=== PATIENT | female | born 1995 | race African-American/Black ===

== ENCOUNTER 2017-02-19 12:18 | Emergency (ER) | payer BC, OTHER ==
[2017-02-19] MEDS ORDERED: LORazepam 1 MG TAB PO STA (12:51)
--- NOTE | 2017-02-19 12:55 | ED ---
General Adult HPI - General Chief complaint: Anxiety Stated complaint: anxiety Source: patient, RN notes reviewed Mode of arrival: EMS Limitations: no limitations - History of Present Illness Initial comments: Chief complaint history of present illness a 21-year-old female reports that she became nauseated while in [employer]ri[employer] and then vomited and then had an anxiety attack and/or panic attack. Patient reports she's had this several times over the last several years last time was over 14 months ago while with her daughter. Patient denies any specific reason. Denies any serious emotional or medical problems. - Related Data Home Medications Medication Instructions Recorded Confirmed No Known Home Medications [No 02/19/17 02/19/17 Known Home Medications] Allergies Allergy/AdvReac Type Severity Reaction Status Date / Time No Known Allergies Allergy Verified 02/19/17 12:28 Review of Systems ROS Statement: Those systems with pertinent positive or pertinent negative responses have been documented in the HPI. Review of systems. Patient denying any headache or visual acuity changes she reports she is breathing quickly she has numbness and tingling around her lips and her hands feel tight. Patient feel short of breath without chest pain. No nausea or vomiting at this time though she did have an earlier. No neuro deficits. All systems otherwise reviewed are negative. Past medical problems several previous episodes of anxiety attacks like this that subsided on their own without specific cause or treatment time. Patient's family history significant for an aunt with breast cancer. Patient denies any ALLERGIES nonsmoker she does drink alcohol. Patient reports that he does not use any control does not think she is but agrees to have a test done which might explain her nausea vomiting this morning. ROS Other: All systems not noted in ROS Statement are negative. Past Medical History Past Medical History: No Reported History Additional Past Medical History / Comment(s): cyst in vaginal area History of Any Multi-Drug Resistant Organisms: None Reported Past Surgical History: No Surgical Hx Reported Additional Past Anesthesia/Blood Transfusion Reaction / Comment(s): no family hx of problems with anesthesia Past Psychological History: No Psychological Hx Reported Smoking Status: Never smoker Past Alcohol Use History: Occasional Past Drug Use History: None Reported - Past Family History Mother Family Medical History: No Reported History General Exam - General Exam Comments Initial Comments: General: The patient is awake and alert, patient had anxiety or panic attack while in [employer]ri[employer] performing. Started the vomit. The patient's vital signs are temperature 98.6 pulse 56 respiratory rate 20 pulse ox on percent room air blood pressure 128/70. Eye: Pupils are equal, round and reactive to light, extra-ocular movements are intact ; there is normal conjunctiva bilaterally. Ears, nose, mouth and throat: There are moist mucous membranes . Neck: The neck is supple, Cardiovascular: There is a regular rate and rhythm. No murmur, rub or gallop is appreciated. Respiratory: Lungs are clear to auscultation, respirations are non-labored, breath sounds are equal. No wheezes, stridor, rales, or rhonchi. Gastrointestinal: Patient vomited earlier. Currently no abdominal pain or discomfort. Denies any diarrhea. Denies eating any bad food. Back: No complaint of back pain Musculoskeletal: Full range of motion of upper and lower extremities. She did feel tingling to her hands when she was hyperventilating. Neurological: No neuro deficits at this time. Skin: Skin is warm and dry and no rashes or lesions are noted. Psychiatric: Cooperative, appropriate mood & affect, normal judgment. 3 previous episodes of an anxiety attack over the last several years. Not depressed and not suicidal. Limitations: no limitations Course Vital Signs 02/19/17 12:24 Temperature 98.6 F Pulse Rate 66 Respiratory 20 Rate Blood Pressure 128/70 O2 Sat by Pulse 100 Oximetry Medical Decision Making - Medical Decision Making Urine test was negative. The patient's feeling much better this time no longer anxious or having any increased respiratory distress. We discussed anxiety and the patient wants to follow up with [facility] she is to call them for an induction interview. - Lab Data Lab Results 02/19/17 Range/Units 13:18 Urine HCG, Qual Not Detected (Not Detectd) Disposition Clinical Impression: Acute anxiety Disposition: HOME SELF-CARE Condition: Good Additional Instructions: Use the breathing technique as discussed in emergency room. Follow-up with family physician. Follow up with [facility]. Time of Disposition: 13:37
[2017-02-19 13:52] VITALS: BP 127/77; PULSE 88; RESP 16; TEMP 97.8
== END 2017-02-19 13:59 | disposition home or self-care (01) ==
LOC: EC 12:18
DX: F41.9 Anxiety disorder, unspecified (principal)
CPT/HCPCS: 81025; 99283

== ENCOUNTER 2017-02-27 08:26 | Emergency (ER) | payer OTHER ==
[2017-02-27] MEDS ORDERED: AZITHROMYCIN 500 MG TAB PO STA (08:50)
[2017-02-27] MEDS ORDERED: metroNIDAZOLE 500 MG TAB PO STA (08:50)
[2017-02-27] MEDS ORDERED: cefTRIAXone 250 MG VIAL IM STA (08:50)
--- NOTE | 2017-02-27 08:53 | ED ---
Female Urogenital HPI - General Chief complaint: Urogenital Stated complaint: ABDOMINAL PAIN Time Seen by Provider: 02/27/17 08:37 Source: patient, RN notes reviewed Mode of arrival: ambulatory - History of Present Illness Initial comments: 21-year-old female presents for pelvic pain and discharge. Patient states that she noticed unusual discharge this morning. Patient states that she is having a lot of pelvic cramping as well. Patient states that she recently finished her menstrual cycle. Patient denies any fever chills cough cold runny nose with this. Patient states that she thought may be an infection or something along those lines. Patient denies any bruising. Patient states that she is concerned about these.Patient denies any recent fever, chills, shortness of breath, chest pain, back pain, abdominal pain, nausea vomiting, numbness or tingling, dysuria or hematuria, constipation or diarrhea, headaches or visual changes, or any other current symptoms. Last Menstrual Period: 02/06/17 - Related Data Previous Rx's Medication Instructions Recorded Doxycycline [Vibramycin] 100 mg PO Q12HR #56 capsule 02/27/17 Nitrofurantoin Macrocrystal 100 mg PO BID #10 cap 02/27/17 [Macrodantin] Allergies Allergy/AdvReac Type Severity Reaction Status Date / Time No Known Allergies Allergy Verified 02/27/17 08:36 Review of Systems ROS Statement: Those systems with pertinent positive or pertinent negative responses have been documented in the HPI. ROS Other: All systems not noted in ROS Statement are negative. Past Medical History Past Medical History: No Reported History Additional Past Medical History / Comment(s): cyst in vaginal area History of Any Multi-Drug Resistant Organisms: None Reported Past Surgical History: No Surgical Hx Reported Additional Past Anesthesia/Blood Transfusion Reaction / Comment(s): no family hx of problems with anesthesia Past Psychological History: No Psychological Hx Reported Smoking Status: Never smoker Past Alcohol Use History: Occasional Past Drug Use History: None Reported - Past Family History Mother Family Medical History: No Reported History General Exam General appearance: alert, in no apparent distress Eye exam: Present: normal appearance, PERRL, EOMI. Absent: scleral icterus, conjunctival injection, periorbital swelling ENT exam: Present: normal exam, mucous membranes moist Neck exam: Present: normal inspection. Absent: tenderness, meningismus, lymphadenopathy Respiratory exam: Present: normal lung sounds bilaterally. Absent: respiratory distress, wheezes, rales, rhonchi, stridor Cardiovascular Exam: Present: regular rate, normal rhythm, normal heart sounds. Absent: systolic murmur, diastolic murmur, rubs, gallop, clicks External exam: Present: normal external exam Speculum exam: Present: erythema, vaginal discharge (Yellow, thin, frothy) By manual exam: Present: cervical motion tenderness, uterine tenderness Back exam: Present: normal inspection Neurological exam: Present: alert, oriented X3, CN II-XII intact. Absent: motor sensory deficit Psychiatric exam: Present: normal affect Skin exam: Present: warm, dry, intact, normal color. Absent: rash Course Vital Signs 02/27/17 08:33 Temperature 98.1 F Pulse Rate 66 Respiratory 18 Rate Blood Pressure 110/58 O2 Sat by Pulse 100 Oximetry Medical Decision Making - Medical Decision Making 21-year-old female presents emergency Department with a chief complaint of pelvic pain and vaginal discharge. There is concern for STD we will prophylactically treat the patient on Doxy for pelvic inflammatory disease. Urine was reviewed that does show maybe suspicion for UTIs well. We will put the patient nitrofurantoin for this as well. We did discuss follow-up on her results and she stated that she understood. Urine was reviewed. At this time patient was informed of safe practices at this time and to contact [facility]. Patient stated that she understood all her questions have been answered. She will be discharged. - Lab Data Lab Results 02/27/17 02/27/17 02/27/17 Range/Units 08:48 08:48 08:48 Urine Color Yellow Urine Appearance Cloudy H (Clear) Urine pH 6.5 (5.0-8.0) Ur Specific [place] 1.025 (1.001-1.035) Urine Protein Trace H (Negative) Urine Glucose (UA) Negative (Negative) Urine Ketones Negative (Negative) Urine Blood Trace H (Negative) Urine Nitrite Negative (Negative) Urine Bilirubin Negative (Negative) Urine Urobilinogen 2.0 (<2.0) mg/dL Ur Leukocyte Esterase Large H (Negative) Urine RBC 11 H (0-5) /hpf Urine WBC 45 H (0-5) /hpf Ur Squamous Epith Cells 8 H (0-4) /hpf Urine Bacteria Occasional H (None) /hpf Urine Mucus Occasional H (None) /hpf Urine HCG, Qual Not Detected (Not Detectd) Trichomonas Ag (Rapid) Negative (Negative) Disposition Clinical Impression: Pelvic inflammatory disease (PID), UTI (urinary tract infection) Disposition: HOME SELF-CARE Condition: Stable Instructions: Pelvic Inflammatory Disease (ED), Urinary Tract Infection in Women (ED) Additional Instructions: Please use medication as discussed. Please follow up with family doctor if symptoms have not improved over the next two days. Please return to the emergency room if your symptoms increase or worsen or for any other concerns. Prescriptions: Doxycycline [Vibramycin] 100 mg PO Q12HR #56 capsule Nitrofurantoin Macrocrystal [Macrodantin] 100 mg PO BID #10 cap Referrals: Yovani Cervantes MD [Primary Care Provider] - 1-2 days Time of Disposition: 09:46
[2017-02-27 09:33] LABS: Appearance,Urine Cloudy (Clear); Bacteria,Urine Occasional /hpf; Bilirubin,Urine Negative (Negative); Glucose,Urine (UA) Negative (Negative); Ketones,Urine Negative (Negative); Leukocyte Esterase,Urine Large (Negative); Mucus,Urine Occasional /hpf; Nitrite,Urine Negative (Negative); PH, Urine 6.5 (5.0-8.0); Particle Count 8211; Protein,Urine Trace (Negative); RBC,Urine 11 /hpf (0-5); Specific Gravity,Urine 1.025 (1.001-1.035); Squamous Epithelial Cell,Urine 8 /hpf (0-4); UA Billing (MACRO vs. MICRO) MICRO; WBC,Urine 45 /hpf (0-5)
[2017-02-27] MEDS ORDERED: ONDANSETRON ODT 4 MG TAB PO STA (10:02)
[2017-02-27 10:05] VITALS: BP 132/59; PULSE 75; RESP 16; TEMP 97.6
== END 2017-02-27 10:05 | disposition home or self-care (01) ==
LOC: EC 08:26
DX: N73.9 Female pelvic inflammatory disease, unspecified (principal); N39.0 Urinary tract infection, site not specified
CPT/HCPCS: 96372 ×2; 99284 ×2; 87591; 87491; 81001; 81025; 87808; 87070; J0696; 87205

== ENCOUNTER 2018-02-20 08:16 | Emergency (ER) | payer OTHER ==
[2018-02-20 08:24] VITALS: RESP 18; TEMP 98.1
--- NOTE | 2018-02-20 08:52 | ED ---
General Adult HPI - General Chief complaint: Vaginal Bleeding Stated complaint: and bleeding Time Seen by Provider: 02/20/18 08:46 Source: patient, RN notes reviewed Mode of arrival: ambulatory Limitations: no limitations - History of Present Illness Initial comments: The patient 22-year-old female who is G4, P2, 1 previous miscarriage, presenting to the emergency room today with a chief complaint of lower abdominal pain. Patient states she had a positive test last week. She states she is approximately 4 weeks . Patient states bleeding over the last 3 days. States has become a little heavier this morning. States both bright and dark in color. Patient does admit to some mild cramping lower abdomen. Denies any other complaints. Patient denies any recent fever, chills, shortness of breath, chest pain, back pain, numbness or tingling, dysuria, constipation or diarrhea, headaches or visual changes, or any other complaints. - Related Data Home Medications Medication Instructions Recorded Confirmed No Known Home Medications [No 02/20/18 02/20/18 Known Home Medications] Allergies Allergy/AdvReac Type Severity Reaction Status Date / Time No Known Allergies Allergy Verified 02/20/18 10:11 Review of Systems ROS Statement: Those systems with pertinent positive or pertinent negative responses have been documented in the HPI. ROS Other: All systems not noted in ROS Statement are negative. Past Medical History Past Medical History: No Reported History Additional Past Medical History / Comment(s): cyst in vaginal area History of Any Multi-Drug Resistant Organisms: None Reported Past Surgical History: No Surgical Hx Reported Additional Past Anesthesia/Blood Transfusion Reaction / Comment(s): no family hx of problems with anesthesia Past Psychological History: No Psychological Hx Reported Smoking Status: Never smoker Past Alcohol Use History: Occasional Past Drug Use History: None Reported - Past Family History Mother Family Medical History: No Reported History General Exam - General Exam Comments Initial Comments: General: The patient is awake and alert, in no distress, and does not appear acutely ill. Eye: Pupils are equal, round and reactive to light, extra-ocular movements are intact. No nystagmus. There is normal conjunctiva bilaterally. No signs of icterus. Ears, nose, mouth and throat: There are moist mucous membranes and no oral lesions. Neck: The neck is supple, there is no tenderness or JVD. Cardiovascular: There is a regular rate and rhythm. No murmur, rub or gallop is appreciated. Respiratory: Lungs are clear to auscultation, respirations are non-labored, breath sounds are equal. No wheezes, stridor, rales, or rhonchi. Gastrointestinal: Soft, non-distended, non-tender abdomen without masses or organomegaly noted. There is no rebound or guarding present. No CVA tenderness. Bowel sounds are unremarkable. Musculoskeletal: Normal ROM, no tenderness. Strength 5/5. Sensation intact. Pulses equal bilaterally 2+. Neurological: A&O x 3. CN II-XII intact, There are no obvious motor or sensory deficits. Coordination appears grossly intact. Speech is normal. Skin: Skin is warm and dry and no rashes or lesions are noted. Psychiatric: Cooperative, appropriate mood & affect, normal judgment. Limitations: no limitations Course Vital Signs 02/20/18 08:21 Temperature 98.1 F Pulse Rate 62 Respiratory 18 Rate Blood Pressure 118/74 O2 Sat by Pulse 98 Oximetry Medical Decision Making - Medical Decision Making Patient reexamined at this time shows no signs of distress. Her ultrasound shows no evidence of IUP at this time. Does show a mass on the left adnexa. Possible ectopic. Patient abdomen is soft on palpation. Vitals are stable. Patient's beta hCG was 339. Patient's Rh+. Case discussed with attending physician Dr. Jerez. Patient will be discharged home to follow-up with her OB/ [facility]. She states she seen Dr. Parks in the past. Patient will be given a prescription for repeat beta hCG in 2 days. Advised return to emergency room if any symptoms increase or worsen or for any other concerns. - Lab Data Result diagrams: 02/20/18 09:13 02/20/18 09:13 Lab Results 02/20/18 02/20/18 02/20/18 Range/Units 09:13 09:13 09:13 WBC 2.8 L (3.8-10.6) k/uL RBC 4.42 (3.80-5.40) m/uL Hgb 10.8 L (11.4-16.0) gm/dL Hct 34.7 (34.0-46.0) % MCV 78.5 L (80.0-100.0) fL MCH 24.3 L (25.0-35.0) pg MCHC 31.0 (31.0-37.0) g/dL RDW 17.4 H (11.5-15.5) % Plt Count 147 L (150-450) k/uL Neutrophils % 55 % Lymphocytes % 34 % Monocytes % 7 % Eosinophils % 1 % Basophils % 1 % Neutrophils # 1.6 (1.3-7.7) k/uL Lymphocytes # 1.0 (1.0-4.8) k/uL Monocytes # 0.2 (0-1.0) k/uL Eosinophils # 0.0 (0-0.7) k/uL Basophils # 0.0 (0-0.2) k/uL Hypochromasia Moderate Anisocytosis Slight Microcytosis Slight Sodium 143 (137-145) mmol/L Potassium 4.0 (3.5-5.1) mmol/L Chloride 107 (98-107) mmol/L Carbon Dioxide 23 (22-30) mmol/L Anion Gap 13 mmol/L BUN 11 (7-17) mg/dL Creatinine 0.61 (0.52-1.04) mg/dL Est GFR (CKD-EPI)AfAm >90 (>60 ml/min/1.73 sqM) Est GFR (CKD-EPI)NonAf >90 (>60 ml/min/1.73 sqM) Glucose 90 (74-99) mg/dL Calcium 9.0 (8.4-10.2) mg/dL Total Bilirubin 0.4 (0.2-1.3) mg/dL AST 27 (14-36) U/L ALT 37 (9-52) U/L Alkaline Phosphatase 52 (38-126) U/L Total Protein 6.8 (6.3-8.2) g/dL Albumin 3.9 (3.5-5.0) g/dL HCG, Quant 339.5 mIU/mL Urine Color Urine Appearance (Clear) Urine pH (5.0-8.0) Ur Specific [place] (1.001-1.035) Urine Protein (Negative) Urine Glucose (UA) (Negative) Urine Ketones (Negative) Urine Blood (Negative) Urine Nitrite (Negative) Urine Bilirubin (Negative) Urine Urobilinogen (<2.0) mg/dL Ur Leukocyte Esterase (Negative) Urine RBC (0-5) /hpf Urine WBC (0-5) /hpf Ur Squamous Epith Cells (0-4) /hpf Urine Mucus (None) /hpf Blood Type A Positive Blood Type Recheck No 02/20/18 Range/Units 09:13 WBC (3.8-10.6) k/uL RBC (3.80-5.40) m/uL Hgb (11.4-16.0) gm/dL Hct (34.0-46.0) % MCV (80.0-100.0) fL MCH (25.0-35.0) pg MCHC (31.0-37.0) g/dL RDW (11.5-15.5) % Plt Count (150-450) k/uL Neutrophils % % Lymphocytes % % Monocytes % % Eosinophils % % Basophils % % Neutrophils # (1.3-7.7) k/uL Lymphocytes # (1.0-4.8) k/uL Monocytes # (0-1.0) k/uL Eosinophils # (0-0.7) k/uL Basophils # (0-0.2) k/uL Hypochromasia Anisocytosis Microcytosis Sodium (137-145) mmol/L Potassium (3.5-5.1) mmol/L Chloride (98-107) mmol/L Carbon Dioxide (22-30) mmol/L Anion Gap mmol/L BUN (7-17) mg/dL Creatinine (0.52-1.04) mg/dL Est GFR (CKD-EPI)AfAm (>60 ml/min/1.73 sqM) Est GFR (CKD-EPI)NonAf (>60 ml/min/1.73 sqM) Glucose (74-99) mg/dL Calcium (8.4-10.2) mg/dL Total Bilirubin (0.2-1.3) mg/dL AST (14-36) U/L ALT (9-52) U/L Alkaline Phosphatase (38-126) U/L Total Protein (6.3-8.2) g/dL Albumin (3.5-5.0) g/dL HCG, Quant mIU/mL Urine Color Yellow Urine Appearance Clear (Clear) Urine pH 6.0 (5.0-8.0) Ur Specific [place] 1.023 (1.001-1.035) Urine Protein Trace H (Negative) Urine Glucose (UA) Negative (Negative) Urine Ketones Negative (Negative) Urine Blood Moderate H (Negative) Urine Nitrite Negative (Negative) Urine Bilirubin Negative (Negative) Urine Urobilinogen <2.0 (<2.0) mg/dL Ur Leukocyte Esterase Negative (Negative) Urine RBC 8 H (0-5) /hpf Urine WBC 1 (0-5) /hpf Ur Squamous Epith Cells 1 (0-4) /hpf Urine Mucus Moderate H (None) /hpf Blood Type Blood Type Recheck Disposition Clinical Impression: Threatened miscarriage Disposition: HOME SELF-CARE Condition: Good Instructions: Threatened Miscarriage (ED) Additional Instructions: Please follow-up with [facility] over the next 2 days and have blood redrawn. Please return here to the emergency room if any symptoms increase worsen or for any concerns as discussed. Referrals: Yovani Cervantes MD [Primary Care Provider] - 1-2 days Behzad Parks DO [Doctor of Osteopathic Medicine] - 1-2 days Time of Disposition: 10:33
[2018-02-20 09:32] LABS: Anisocytosis Slight; Basophils % (A) 1 %; Eosinophils % (A) 1 %; HCT 34.7 % (34.0-46.0); HGB 10.8 gm/dL (11.4-16.0); Hypochromasia Moderate; Lymphocytes % (A) 34 %; MCH 24.3 pg (25.0-35.0); MCV 78.5 fL (80.0-100.0); Mean Platelet Volume 10.1; Microcytosis Slight; Monocytes # (A) 0.2 k/uL (0-1.0); Monocytes % (A) 7 %; Neutrophils # (A) 1.6 k/uL (1.3-7.7); Neutrophils % (A) 55 %; Platelet Count 147 k/uL (150-450); RBC 4.42 m/uL (3.80-5.40); RDW 17.4 % (11.5-15.5); WBC 2.8 k/uL (3.8-10.6)
[2018-02-20 09:43] LABS: Appearance,Urine Clear (Clear); Bilirubin,Urine Negative (Negative); Blood,Urine Moderate (Negative); Color,Urine Yellow; Glucose,Urine (UA) Negative (Negative); Ketones,Urine Negative (Negative); Leukocyte Esterase,Urine Negative (Negative); Mucus,Urine Moderate /hpf; Nitrite,Urine Negative (Negative); Protein,Urine Trace (Negative); RBC,Urine 8 /hpf (0-5); Specific Gravity,Urine 1.023 (1.001-1.035); Squamous Epithelial Cell,Urine 1 /hpf (0-4); Urobilinogen,Urine <2.0 mg/dL (<2.0); WBC,Urine 1 /hpf (0-5)
[2018-02-20 09:44] LABS: ALT 37 U/L (9-52); AST 27 U/L (14-36); Albumin 3.9 g/dL (3.5-5.0); Alkaline Phosphatase 52 U/L (38-126); Anion Gap 13 mmol/L; Blood Urea Nitrogen 11 mg/dL (7-17); Carbon Dioxide 23 mmol/L (22-30); Chloride 107 mmol/L (98-107); Glucose 90 mg/dL (74-99); Sodium 143 mmol/L (137-145); Total Bilirubin 0.4 mg/dL (0.2-1.3); Total Protein 6.8 g/dL (6.3-8.2)
[2018-02-20 10:00] LABS: HCG,Quantitative Serum 339.5 mIU/mL
--- NOTE | 2018-02-20 10:13 | US ---
EXAMINATION TYPE: US OB <=14 wks transvag DATE OF EXAM: 02/20/2018 COMPARISON: NONE CLINICAL HISTORY: Pain. Pt states +home preg test 3 days ago, now having heavy vaginal bleeding EXAM PERFORMED: Transvaginal (TV) and Transabdominal (TA) EXAM MEASUREMENTS: GESTATIONAL AGE / DATING Physician Established: Not yet established Dates by LMP: (4 weeks/6 days) EDC: 10/24/2018 Dates by First Scan: No prior Dates by Current Scan for: No IUP seen MATERNAL ANATOMY Uterus: 7.1 x 4.1 x 4.2 cm Right Ovary: 3.3 x 1.9 x 2.1 cm Left Ovary: 2.8 x 2.1 x 2.5 cm Post CDS / Adnexa: Solid, vascular mass= 3.1 x 1.7 x 2.7 cm, appears separate/medial from left ovary Presence of free fluid: Yes, with debris posterior cul-de-sac extending into left adnexa GESTATION / SURVEY IUP: No IUP seen at this time, endo thickness= 0.4 cm Solid, vascular mass left adnexa, free fluid with debris within left adnexa Date of LMP: Pt unsure, thinks 01/17/2018 Beta HcG (if available): 339.5 on 02/20/18 IMPRESSION: 1. Intrauterine gestations not identified. At this early stage in low beta hCG level visualization of an intrauterine gestation may not be possible. Ectopic cannot be excluded. Correlation wit h serial beta hCG as well as follow-up ultrasound is recommended. 2. Solid lesion left adnexa. 3. Small amount of complex fluid within the cul-de-sac.
[2018-02-20 10:49] VITALS: BP 110/55; PULSE 59
== END 2018-02-20 10:49 | disposition home or self-care (01) ==
LOC: EC 08:16
DX: O20.0 Threatened abortion (principal); Z3A.01 Less than 8 weeks gestation of pregnancy
CPT/HCPCS: 36415; 76801; 76817; 80053; 81001; 84702; 85025; 86900; 86901; 87086; 99284

== ENCOUNTER → 2018-02-22 | Outpatient (CLI) | payer OTHER | END | disposition home or self-care (01) | LOC: LABWHC1 14:37 | PROVIDERS: ATTEND Physician Assistant | DX: O20.0 Threatened abortion (principal); Z3A.00 Weeks of gestation of pregnancy not specified | CPT/HCPCS: 36415; 84702 ==

== ENCOUNTER 2018-03-21 11:51 | Emergency (ER) | payer OTHER ==
[2018-03-21 12:38] VITALS: TEMP 97.8
--- NOTE | 2018-03-21 16:06 | ED ---
General Adult HPI - General Chief complaint: Vaginal Bleeding Stated complaint: Vaginal Bleeding-Early Time Seen by Provider: 03/21/18 15:55 Source: patient, RN notes reviewed, old records reviewed Mode of arrival: ambulatory Limitations: no limitations - History of Present Illness Initial comments: 22-year-old female G for P2 with one spontaneous previous miscarriage presents with vaginal bleeding. Patient is currently . She is uncertain of how far along she is. She states her last menstrual period was in the middle of December. She did receive an ultrasound approximately one month ago but has had no formal care. She is presenting with vaginal bleeding which began yesterday evening. She has passed several large clots. No tissue passed. She is also having cramping in her lower abdomen and low back. She has no other significant past medical history. Denies any nausea or vomiting. Denies any dysuria. Denies fever or chills. - Related Data Home Medications Medication Instructions Recorded Confirmed No Known Home Medications [No 02/20/18 02/20/18 Known Home Medications] Allergies Allergy/AdvReac Type Severity Reaction Status Date / Time No Known Allergies Allergy Verified 03/21/18 18:12 Review of Systems ROS Statement: Those systems with pertinent positive or pertinent negative responses have been documented in the HPI. ROS Other: All systems not noted in ROS Statement are negative. Past Medical History Past Medical History: No Reported History Additional Past Medical History / Comment(s): cyst in vaginal area History of Any Multi-Drug Resistant Organisms: None Reported Past Surgical History: No Surgical Hx Reported Additional Past Anesthesia/Blood Transfusion Reaction / Comment(s): no family hx of problems with anesthesia Past Psychological History: Anxiety Smoking Status: Never smoker Past Alcohol Use History: None Reported Past Drug Use History: None Reported - Past Family History Mother Family Medical History: No Reported History General Exam Limitations: no limitations General appearance: alert, in no apparent distress Head exam: Present: normocephalic Eye exam: Present: normal appearance, PERRL Neck exam: Present: normal inspection. Absent: tenderness, meningismus Respiratory exam: Present: normal lung sounds bilaterally. Absent: respiratory distress, wheezes Cardiovascular Exam: Present: regular rate, normal rhythm GI/Abdominal exam: Present: soft, tenderness (Mild left lower quadrant tenderness). Absent: distended, guarding, rebound External exam: Present: normal external exam. Absent: erythema Speculum exam: Present: vaginal bleeding, other (Cervix is closed no active bleeding). Absent: vaginal discharge, tissue, laceration By manual exam: Present: normal by manual exam, adnexal tenderness (left) Extremities exam: Present: normal inspection, full ROM. Absent: tenderness Neurological exam: Present: alert, oriented X3, CN II-XII intact. Absent: motor sensory deficit Psychiatric exam: Present: normal affect, normal mood Skin exam: Present: warm, dry, intact. Absent: cyanosis, diaphoretic Course Vital Signs 03/21/18 03/21/18 12:36 17:54 Temperature 97.8 F Pulse Rate 54 L 56 L Respiratory 18 16 Rate Blood Pressure 124/71 114/56 O2 Sat by Pulse 100 100 Oximetry Medical Decision Making - Medical Decision Making 22-year-old female presenting with vaginal bleeding. Patient was told she was , had an ultrasound done approximately one month ago and had a beta hCG of 339. Repeat beta-hCG 2 days later was 130 which is down trending suggestive of miscarriage. Patient had developed bleeding and lower cramping specifically on the left side which began the past 24 hours. Laboratory studies are obtained , the hemoglobin is 10.6 which is stable. HCG is nondetectable. Patient is a positive. Repeat ultrasound is obtained which shows a 2.3; left hypoechoic vascular mass in the left adnexa with small amount of free fluid. This is concerning for demise of ectopic . Findings are discussed with Dr. Moreno, on-call HYDROELECTRIC PRODUCTION MANAGER. He recommends given the negative hCG that the patient follow up as an outpatient. Pelvic exam reveals minimal bleeding at the cervical os, cervix is closed. Patient is instructed to return to the emergency department with worsening pain , worsening vaginal bleeding, development lightheadedness or fatigue. - Lab Data Result diagrams: 03/21/18 16:08 03/21/18 16:08 Lab Results 03/21/18 03/21/18 03/21/18 Range/Units 16:08 16:08 16:08 WBC 5.5 (3.8-10.6) k/uL RBC 4.29 (3.80-5.40) m/uL Hgb 10.6 L (11.4-16.0) gm/dL Hct 33.7 L (34.0-46.0) % MCV 78.5 L (80.0-100.0) fL MCH 24.7 L (25.0-35.0) pg MCHC 31.5 (31.0-37.0) g/dL RDW 18.0 H (11.5-15.5) % Plt Count 204 (150-450) k/uL Neutrophils % 54 % Lymphocytes % 38 % Monocytes % 5 % Eosinophils % 1 % Basophils % 0 % Neutrophils # 3.0 (1.3-7.7) k/uL Lymphocytes # 2.1 (1.0-4.8) k/uL Monocytes # 0.3 (0-1.0) k/uL Eosinophils # 0.1 (0-0.7) k/uL Basophils # 0.0 (0-0.2) k/uL Hypochromasia Moderate Anisocytosis Slight Microcytosis Slight PT 10.4 (9.0-12.0) sec INR 1.1 (<1.2) APTT 25.9 (22.0-30.0) sec Sodium 143 (137-145) mmol/L Potassium 3.7 (3.5-5.1) mmol/L Chloride 107 (98-107) mmol/L Carbon Dioxide 23 (22-30) mmol/L Anion Gap 13 mmol/L BUN 13 (7-17) mg/dL Creatinine 0.70 (0.52-1.04) mg/dL Est GFR (CKD-EPI)AfAm >90 (>60 ml/min/1.73 sqM) Est GFR (CKD-EPI)NonAf >90 (>60 ml/min/1.73 sqM) Glucose 86 (74-99) mg/dL Calcium 9.3 (8.4-10.2) mg/dL Total Bilirubin 0.3 (0.2-1.3) mg/dL AST 23 (14-36) U/L ALT 31 (9-52) U/L Alkaline Phosphatase 58 (38-126) U/L Total Protein 6.8 (6.3-8.2) g/dL Albumin 4.1 (3.5-5.0) g/dL HCG, Quant <2.4 mIU/mL Blood Type Blood Type Recheck Antibody Screen Spec Expiration Date 03/21/18 Range/Units 16:08 WBC (3.8-10.6) k/uL RBC (3.80-5.40) m/uL Hgb (11.4-16.0) gm/dL Hct (34.0-46.0) % MCV (80.0-100.0) fL MCH (25.0-35.0) pg MCHC (31.0-37.0) g/dL RDW (11.5-15.5) % Plt Count (150-450) k/uL Neutrophils % % Lymphocytes % % Monocytes % % Eosinophils % % Basophils % % Neutrophils # (1.3-7.7) k/uL Lymphocytes # (1.0-4.8) k/uL Monocytes # (0-1.0) k/uL Eosinophils # (0-0.7) k/uL Basophils # (0-0.2) k/uL Hypochromasia Anisocytosis Microcytosis PT (9.0-12.0) sec INR (<1.2) APTT (22.0-30.0) sec Sodium (137-145) mmol/L Potassium (3.5-5.1) mmol/L Chloride (98-107) mmol/L Carbon Dioxide (22-30) mmol/L Anion Gap mmol/L BUN (7-17) mg/dL Creatinine (0.52-1.04) mg/dL Est GFR (CKD-EPI)AfAm (>60 ml/min/1.73 sqM) Est GFR (CKD-EPI)NonAf (>60 ml/min/1.73 sqM) Glucose (74-99) mg/dL Calcium (8.4-10.2) mg/dL Total Bilirubin (0.2-1.3) mg/dL AST (14-36) U/L ALT (9-52) U/L Alkaline Phosphatase (38-126) U/L Total Protein (6.3-8.2) g/dL Albumin (3.5-5.0) g/dL HCG, Quant mIU/mL Blood Type A Positive Blood Type Recheck No Antibody Screen NEGATIVE Spec Expiration Date 03/24/20182307 Disposition Clinical Impression: Incomplete , Vaginal bleeding, Aborted ectopic Disposition: HOME SELF-CARE Condition: Good Instructions: Ectopic (ED), Miscarriage (ED) Is patient prescribed a controlled substance at d/c from ED?: No Referrals: Yovani Cervantes MD [Primary Care Provider] - 1-2 days Kyle Moreno MD [STAFF PHYSICIAN] - 1-2 days Time of Disposition: 18:13
[2018-03-21 16:38] LABS: Anisocytosis Slight; Basophils % (A) 0 %; Eosinophils # (A) 0.1 k/uL (0-0.7); Eosinophils % (A) 1 %; HCT 33.7 % (34.0-46.0); HGB 10.6 gm/dL (11.4-16.0); Hypochromasia Moderate; Lymphocytes # (A) 2.1 k/uL (1.0-4.8); Lymphocytes % (A) 38 %; MCH 24.7 pg (25.0-35.0); MCHC 31.5 g/dL (31.0-37.0); MCV 78.5 fL (80.0-100.0); Microcytosis Slight; Monocytes # (A) 0.3 k/uL (0-1.0); Monocytes % (A) 5 %; Neutrophils % (A) 54 %; Platelet Count 204 k/uL (150-450); RBC 4.29 m/uL (3.80-5.40); WBC 5.5 k/uL (3.8-10.6)
[2018-03-21 16:48] LABS: INR 1.1 (<1.2); Partial Thromboplastin Time 25.9 sec (22.0-30.0); Prothrombin Time 10.4 sec (9.0-12.0)
[2018-03-21 16:50] LABS: ALT 31 U/L (9-52); AST 23 U/L (14-36); Albumin 4.1 g/dL (3.5-5.0); Alkaline Phosphatase 58 U/L (38-126); Anion Gap 13 mmol/L; Blood Urea Nitrogen 13 mg/dL (7-17); Calcium 9.3 mg/dL (8.4-10.2); Carbon Dioxide 23 mmol/L (22-30); Chloride 107 mmol/L (98-107); Glucose 86 mg/dL (74-99); Potassium 3.7 mmol/L (3.5-5.1); Sodium 143 mmol/L (137-145); Total Bilirubin 0.3 mg/dL (0.2-1.3); Total Protein 6.8 g/dL (6.3-8.2)
[2018-03-21 17:03] LABS: HCG,Quantitative Serum <2.4 mIU/mL
--- NOTE | 2018-03-21 17:43 | US ---
EXAMINATION TYPE: OB [id number] DATE OF EXAM: 02/20/18 COMPARISON: US 2018 CLINICAL HISTORY: pain. Bleeding and cramping x 2 days, 4, para 2, miscarriage 1 EXAM PERFORMED: Transvaginal (TV) and Transabdominal (TA) EXAM MEASUREMENTS: GESTATIONAL AGE / DATING Physician Established: Not established yet Dates by LMP: Patient unsure Dates by First Scan: No IUP seen at 1st scan Dates by Current Scan for: No IUP seen at this time MATERNAL ANATOMY Uterus: 6.6 x 4.2 x 5.0cm, retroverted Endometrium: 1.1cm Right Ovary: 3.4 x 2.1 x 2.6cm Left Ovary: 2.9 x 2.0 x 2.4cm Post CDS / Adnexa: left adnexa: 2.2 x 1.8 x 2.3cm hypoechoic solid vascular mass, appears separate fr om left ovary Presence of free fluid: yes, small amount posterior cul de sac Presence of corpus luteal cyst: not seen Presence of subchorionic bleed: no GESTATION / SURVEY IUP: No IUP seen at this time Date of LMP: Patient unsure, thinks mid December Beta HcG (if available): Not available at time of exam IMPRESSION: NO IUP SEEN AT THIS TIME, BUT 2.3 CM LEFT ADNEXAL HYPOECHOIC VASCULAR MASS WITH SMALL AMOUNT OF FREE FLUID IN POSTERIOR CUL DE SAC.
[2018-03-21 17:54] VITALS: BP 114/56; PULSE 56; RESP 16
[2018-03-21 18:33] LABS: Appearance,Urine Cloudy (Clear); Bacteria,Urine Rare /hpf; Bilirubin,Urine Negative (Negative); Blood,Urine Moderate (Negative); Color,Urine Yellow; Glucose,Urine (UA) Negative (Negative); Ketones,Urine Negative (Negative); Leukocyte Esterase,Urine Negative (Negative); Mucus,Urine Many /hpf; Nitrite,Urine Negative (Negative); PH, Urine 5.5 (5.0-8.0); Protein,Urine Trace (Negative); RBC,Urine 2 /hpf (0-5); Specific Gravity,Urine 1.028 (1.001-1.035); Squamous Epithelial Cell,Urine 2 /hpf (0-4); WBC,Urine 2 /hpf (0-5)
== END 2018-03-21 18:31 | disposition home or self-care (01) ==
LOC: EC 11:51
DX: O03.4 Incomplete spontaneous abortion without complication (principal)
CPT/HCPCS: 36415; 76801; 76817; 80053; 81001; 84702; 85025; 85610; 85730; 86850; 86900; 86901; 99284

== ENCOUNTER 2018-06-01 14:00 | Emergency (ER) | payer OTHER ==
[2018-06-01 14:09] VITALS: RESP 20
[2018-06-01] MEDS ORDERED: KETOROLAC 60 MG/2 ML VIAL IM STA (14:45)
--- NOTE | 2018-06-01 15:00 | ED ---
General Adult HPI - General Chief complaint: Head Injury Stated complaint: Head injury Time Seen by Provider: 06/01/18 14:08 Source: patient Mode of arrival: ambulatory Limitations: no limitations - History of Present Illness Initial comments: Is a 22-year-old female with no past medical history presents today for chief complaint of headache 5 hours. Patient states that early this morning around 11:30 AM she was being the pool when she tried to do a backup of the edge of the pool, hitting the posterior aspect of her skull on the side of the wall. She denies loss of consciousness. Patient states that mainly after she noticed she had a headache she describes this as a 6 out of 10 that radiated to the front. Patient states this is not the worst headache of her life and is dull in nature. Patient stated that she tried to take Tylenol and oriented to alleviate the headache, however this did not work. Patient stated that she was scheduled to work this afternoon however she didn't think that she could go and because the headache and wanted to get checked out. Upon presentation to the emergency department patient's vital signs within normal limits. Patient denies visual changes, diplopia, ataxia, speech changes, muscle weakness, loss of sensation, neck pain, back pain, injury to extremities. Patient denies any recent fever, chills, shortness of breath, chest pain, back pain, abdominal pain , numbness or tingling, dysuria or hematuria, constipation or diarrhea, headaches or visual changes, or any other complaints. - Related Data Previous Rx's Medication Instructions Recorded Ibuprofen [Motrin] 600 mg PO Q8HR PRN 3 Days #9 tab 06/01/18 Allergies Allergy/AdvReac Type Severity Reaction Status Date / Time No Known Allergies Allergy Verified 03/21/18 18:12 Review of Systems ROS Statement: Those systems with pertinent positive or pertinent negative responses have been documented in the HPI. ROS Other: All systems not noted in ROS Statement are negative. Constitutional: Denies: fever, chills Eyes: Denies: vision change ENT: Denies: hearing loss Respiratory: Denies: cough, dyspnea Cardiovascular: Denies: chest pain, palpitations Endocrine: Denies: fatigue Gastrointestinal: Denies: abdominal pain, nausea, vomiting, diarrhea, constipation Genitourinary: Denies: urgency, dysuria, frequency Musculoskeletal: Denies: back pain Skin: Denies: lesions Neurological: Reports: headache. Denies: weakness, numbness, paresthesias, confusion, abnormal gait, vertigo Past Medical History Past Medical History: No Reported History Additional Past Medical History / Comment(s): cyst in vaginal area History of Any Multi-Drug Resistant Organisms: None Reported Past Surgical History: No Surgical Hx Reported Additional Past Anesthesia/Blood Transfusion Reaction / Comment(s): no family hx of problems with anesthesia Past Psychological History: Anxiety Smoking Status: Never smoker Past Alcohol Use History: Occasional Past Drug Use History: None Reported - Past Family History Mother Family Medical History: No Reported History General Exam - General Exam Comments Initial Comments: General: The patient is awake and alert, in no distress, and does not appear acutely ill. Eye: Pupils are equal, round and reactive to light, extra-ocular movements are intact. No nystagmus. There is normal conjunctiva bilaterally. No signs of icterus. Ears, nose, mouth and throat: There are moist mucous membranes and no oral lesions. Neck: The neck is supple, there is no tenderness or JVD. Cardiovascular: There is a regular rate and rhythm. No murmur, rub or gallop is appreciated. Respiratory: Lungs are clear to auscultation, respirations are non-labored, breath sounds are equal. No wheezes, stridor, rales, or rhonchi. Gastrointestinal: [Soft, non-distended, non-tender abdomen without masses or organomegaly noted. There is no rebound or guarding present. No CVA tenderness. Bowel sounds are unremarkable.] Musculoskeletal: Normal ROM, no tenderness. Strength 5/5. Sensation intact. Pulses equal bilaterally 2+. Neurological: A&O x 3. Immediate, intermediate, and marine oil terminal superintendent memory intact. Speech intact and normal. CN II-XII intact. Muscle strength of UE & LE 5/5 equal b/l. Sensation intact of UE/LE equal bilaterally. Coordination intact to finger to nose and heel to soares. (-) Romberg, no pronator drift. Pt able to heel and toe walk. No ataxia-normal gait. DTR +2 UE & LE equal b/l. PERRL- no evidence of APD or conjugate gaze. Pt does state that she has baseline "lazy eye ". Skin: Skin is warm and dry and no rashes or lesions are noted. Psychiatric: Cooperative, appropriate mood & affect, normal judgment. Limitations: no limitations Course Vital Signs 06/01/18 06/01/18 14:05 15:19 Temperature 98.1 F 98.2 F Pulse Rate 62 70 Respiratory 20 20 Rate Blood Pressure 105/58 106/50 O2 Sat by Pulse 100 100 Oximetry Medical Decision Making - Medical Decision Making Is a 22-year-old female with no past medical history presents today for chief complaint of headache 5 hours. Patient states that early this morning around 11:30 AM she was being the pool when she tried to do a backup of the edge of the pool, hitting the posterior aspect of her skull on the side of the wall. She denies loss of consciousness. Patient states that mainly after she noticed she had a headache she describes this as a 6 out of 10 that radiated to the front. Patient states this is not the worst headache of her life and is dull in nature. Patient stated that she tried to take Tylenol and oriented to alleviate the headache, however this did not work. Patient stated that she was scheduled to work this afternoon however she didn't think that she could go and because the headache and wanted to get checked out. Upon presentation to the emergency department patient's vital signs within normal limits. Patient denies visual changes, diplopia, ataxia, speech changes, muscle weakness, loss of sensation, neck pain, back pain, injury to extremities. Neurological examination within normal limits, no signs of focal neural deficits. Patient was given a 30mg IM toradol injection for her headache- patient stated upon reevaluation that this helped the headache and it was almost resolved. The case was discussed with Dr. Rosado who agreed with plan of d/c with ibuprofen 800mg for headache/pain mgmt and follow-up with PCP in 1-2 days. Pt was instructed to return to the ER if symptoms changed and we had a detailed conversation about concussion signs and symptoms and neurological alarm signs. Pt agreed with plan and was d/c in stable condition. Pt left without receiving follow-up instruction however she received these verbally. Disposition Clinical Impression: Headache Disposition: HOME SELF-CARE Condition: Good Instructions: Concussion (ED) Additional Instructions: Please use medication as discussed. Please follow-up with family doctor in the next 2 days of symptoms have not improved. Please return to emergency room if the symptoms increase or worsen or for any other concerns. Prescriptions: Ibuprofen [Motrin] 600 mg PO Q8HR PRN 3 Days #9 tab PRN Reason: Pain Is patient prescribed a controlled substance at d/c from ED?: No Referrals: Yovani Cervantes MD [Primary Care Provider] - 1-2 days Time of Disposition: 15:26 (Pt left before papers were given for f/u information )
[2018-06-01 15:19] VITALS: BP 106/50; PULSE 70; TEMP 98.2
== END 2018-06-01 15:20 | disposition home or self-care (01) ==
LOC: EC 14:00
DX: R51 Headache (principal)
CPT/HCPCS: 99283; 96372; J1885

== ENCOUNTER → 2018-06-18 | Outpatient (CLI) | payer OTHER | END | disposition home or self-care (01) | LOC: LABWHC1 15:50 | PROVIDERS: ATTEND Obstetrics & Gynecology | DX: Z34.80 Encounter for supervision of other normal pregnancy, unspecified trimester (principal); Z3A.00 Weeks of gestation of pregnancy not specified | CPT/HCPCS: 36415; 84702 ==

== ENCOUNTER → 2018-06-22 | Outpatient (CLI) | payer OTHER ==
--- NOTE | 2018-06-22 12:44 | US ---
EXAMINATION TYPE: Transabdominal DATE OF EXAM: 02/20/18 COMPARISON: NONE CLINICAL HISTORY: Z36 Confirm Dates. Confirm dates EXAM PERFORMED: Transvaginal (TV) and Transabdominal (TA) EXAM MEASUREMENTS: GESTATIONAL AGE / DATING Physician Established: not yet established Dates by LMP: (8 weeks/4 days) EDC: 01/28/19 Dates by First Scan: no prior exam Dates by Current Scan for: (6 weeks/4 days) EDC: 02/11/19 MATERNAL ANATOMY Uterus: 9.6 x 6.4 x 6.6cm Right Ovary: 3.0 x 1.5 x 1.6cm Left Ovary: 3.5 x 2.0 x 2.1cm Post CDS / Adnexa: free fluid posterior cul-de-sac Presence of free fluid: yes Presence of corpus luteal cyst: yes, left ovary = 2.2 x 1.8 x 1.9cm Presence of subchorionic bleed: yes, adjacent to GS = 2.3 x 1.0 x 2.7cm GESTATION / SURVEY CRL: 0.7cm (6 weeks/4 days) MSD: 1.1cm (5 weeks/1 days) Yolk Sac (normal less than 6mm): 0.2cm Heart Rate: unable to detect heart tones Date of LMP: 04/23/18 Beta HcG (if available): Not available at this time Unable to obtain heart tones at this time. Gestational sac measuring smaller than CRL. Free flu id posterior cul-de-sac. Subchorionic bleed adjacent to GS. Corpus luteum left ovary. IMPRESSION: 1. Single intrauterine gestation estimated at 6 weeks 4 days gestation based on crown-rump length. 2. Small subchorionic hemorrhage or implantation bleed adjacent to the gestational sac. 3. Cardiac activity was not detected at this time. Typically cardiac activity is evident beyond 6 wee ks gestation. Intrauterine demise is not excluded at this time. Follow-up and correlation with beta-hCG is recommended.
== END | disposition home or self-care (01) ==
LOC: RADUSWWP 07:47
PROVIDERS: ATTEND Obstetrics & Gynecology
DX: O03.9 Complete or unspecified spontaneous abortion without complication (principal); Z3A.01 Less than 8 weeks gestation of pregnancy
CPT/HCPCS: 36415; 76801; 76817; 84702

== ENCOUNTER → 2018-06-26 | Outpatient (CLI) | payer OTHER | END | disposition home or self-care (01) | LOC: LABWHC1 09:49 | PROVIDERS: ATTEND Obstetrics & Gynecology | DX: Z34.90 Encounter for supervision of normal pregnancy, unspecified, unspecified trimester (principal); Z3A.00 Weeks of gestation of pregnancy not specified | CPT/HCPCS: 36415; 84702 ==

== ENCOUNTER 2018-07-01 11:08 | Emergency (ER) | payer OTHER ==
[2018-07-01 11:24] VITALS: TEMP 97.8
--- NOTE | 2018-07-01 11:45 | ED ---
General Adult HPI - General Chief complaint: Extremity Injury, Lower Stated complaint: Fall, Left foot injury Time Seen by Provider: 07/01/18 11:18 Source: patient, RN notes reviewed Mode of arrival: wheelchair Limitations: no limitations - History of Present Illness Initial comments: Patient 22-year-old female presenting to the emergency room today with a chief complaint of an injury to the left ankle that occurred last night. She does admit that she was drinking. She states she was wearing flip-flops when she slipped and somehow rolled her left ankle. Admits to pain over the lateral aspect. Patient denies any other injury or complaint. Patient denies any recent fever, chills, shortness of breath, chest pain, back pain, abdominal pain , nausea or vomiting, numbness or tingling, headaches or visual changes, or any other complaints. - Related Data Previous Rx's Medication Instructions Recorded Ibuprofen [Motrin] 600 mg PO Q6HR PRN #40 day 07/01/18 Allergies Allergy/AdvReac Type Severity Reaction Status Date / Time No Known Allergies Allergy Verified 07/01/18 11:20 Review of Systems ROS Statement: Those systems with pertinent positive or pertinent negative responses have been documented in the HPI. ROS Other: All systems not noted in ROS Statement are negative. Past Medical History Past Medical History: No Reported History Additional Past Medical History / Comment(s): cyst in vaginal area History of Any Multi-Drug Resistant Organisms: None Reported Past Surgical History: No Surgical Hx Reported Additional Past Anesthesia/Blood Transfusion Reaction / Comment(s): no family hx of problems with anesthesia Past Psychological History: Anxiety Smoking Status: Never smoker Past Alcohol Use History: Occasional Past Drug Use History: None Reported - Past Family History Mother Family Medical History: No Reported History General Exam - General Exam Comments Initial Comments: General: The patient is awake and alert, in no distress, and does not appear acutely ill. Neck: The neck is supple, there is no tenderness or JVD. Musculoskeletal: Patient does have some mild swelling over the lateral aspect of the left ankle. Patient will quit tender over lateral malleolus. Mildly tender over the fifth proximal metatarsal. Sensations are intact. Pedal pulse 2+. Shows good range of motion. Neurological: A&O x 3. CN II-XII intact, There are no obvious motor or sensory deficits. Coordination appears grossly intact. Speech is normal. Skin: Skin is warm and dry and no rashes or lesions are noted. Psychiatric: Normal mood and affect. Limitations: no limitations Course Vital Signs 07/01/18 11:20 Temperature 97.8 F Pulse Rate 57 L Respiratory 18 Rate Blood Pressure 142/91 O2 Sat by Pulse 100 Oximetry Medical Decision Making - Medical Decision Making X-rays are negative for any acute fracture dislocation. Results were discussed with patient. She'll be given Aircast splint here in emergency room. Patient does have crutches that she continues with weightbearing as tolerated. She is advised follow-up with orthopedics in 7-10 days if symptoms persist for repeat x -rays. Advised to continue to ice elevate the affected area and use ibuprofen for pain. Disposition Clinical Impression: Ankle sprain Disposition: HOME SELF-CARE Condition: Good Instructions: Ankle Sprain (ED) Additional Instructions: Please continue to ice elevate the affected area. Please use Ice 4 times a day for 20 minutes at a time. Please use brace when up and moving around crutches weightbearing as tolerated. Please follow-up with orthopedics in 7-10 days for repeat x-rays if symptoms persist. Please use ibuprofen for pain. Please return to emergency room for any other concerns. Prescriptions: Ibuprofen [Motrin] 600 mg PO Q6HR PRN #40 day PRN Reason: Pain Is patient prescribed a controlled substance at d/c from ED?: No Referrals: Yovani Cervantes MD [Primary Care Provider] - 1-2 days Time of Disposition: 12:47
[2018-07-01] MEDS ORDERED: KETOROLAC 60 MG/2 ML VIAL IM STA (12:24)
--- NOTE | 2018-07-01 12:28 | XR ---
EXAMINATION TYPE: XR tibia fibula LT , 2 VIEWS DATE OF EXAM ORDERED: 07/01/2018 HISTORY: Pain. COMPARISON: None. FINDINGS: No fracture, dislocation or other acute osseous lesion is seen. IMPRESSION: NORMAL LEFT TIBIA AND FIBULA.
--- NOTE | 2018-07-01 12:28 | XR ---
EXAMINATION TYPE: XR foot complete LT , 3 VIEWS DATE OF EXAM ORDERED: 07/01/2018 HISTORY: Pain. COMPARISON: None. FINDINGS: No fracture, dislocation or other acute osseous lesion is seen. IMPRESSION: NO ACUTE OSSEOUS LESION.
--- NOTE | 2018-07-01 12:30 | XR ---
EXAMINATION TYPE: XR ankle complete LT , 3 VIEWS DATE OF EXAM ORDERED: 07/01/2018 HISTORY: Pain. COMPARISON: None. FINDINGS: No fracture, dislocation or ankle joint effusion is seen. IMPRESSION: NORMAL LEFT ANKLE.
[2018-07-01 13:00] VITALS: BP 113/76; PULSE 68; RESP 16
== END 2018-07-01 12:59 | disposition home or self-care (01) ==
LOC: EC 11:08
DX: S93.402A Sprain of unspecified ligament of left ankle, initial encounter (principal); X50.1XXA Overexertion from prolonged static or awkward postures, initial encounter
CPT/HCPCS: 73590; 73610; 73630; 99283; 29515; 96372; L4350; J1885

== ENCOUNTER 2019-02-04 12:51 | Emergency (ER) | payer OTHER ==
[2019-02-04 13:03] VITALS: BP 114/73; PULSE 84; RESP 18; TEMP 98.4
[2019-02-04 13:50] LABS: Appearance,Urine Cloudy (Clear); Bilirubin,Urine Negative (Negative); Blood,Urine Negative (Negative); Color,Urine Yellow; Glucose,Urine (UA) Negative (Negative); Ketones,Urine 1+ (Negative); Leukocyte Esterase,Urine Large (Negative); Mucus,Urine Many /hpf; Nitrite,Urine Negative (Negative); PH, Urine 6.5 (5.0-8.0); Protein,Urine Trace (Negative); RBC,Urine 5 /hpf (0-5); Specific Gravity,Urine 1.018 (1.001-1.035); Squamous Epithelial Cell,Urine 14 /hpf (0-4); Urobilinogen,Urine <2.0 mg/dL (<2.0)
[2019-02-04 13:55] LABS: Bacteria,Urine Rare /hpf
--- NOTE | 2019-02-04 14:00 | ED ---
Abdominal Pain HPI - General Chief Complaint: Abdominal Pain Stated Complaint: abd pain Time Seen by Provider: 02/04/19 13:15 Source: patient, RN notes reviewed Mode of arrival: ambulatory Limitations: no limitations - History of Present Illness Initial Comments: 23-year-old female presents emergency Department with complaints of missed menstrual cycle. Patient states that she believes she is . Denies any vaginal bleeding, vaginal discharge, abdominal pain, nausea vomiting. Patient states she is A3. Patient states her last mental cycle was in the middle of December. Patient denies any other complaints at this time. Patient states that she has not scheduled appointment with [facility]. - Related Data Previous Rx's Medication Instructions Recorded Cephalexin [Keflex] 500 mg PO Q6HR 3 Days #12 cap 02/04/19 Qfa-Eivs-Nasza Acid 1 each PO DAILY #30 cap 02/04/19 [-U Capsule] Allergies Allergy/AdvReac Type Severity Reaction Status Date / Time No Known Allergies Allergy Verified 02/04/19 13:48 Review of Systems ROS Statement: Those systems with pertinent positive or pertinent negative responses have been documented in the HPI. ROS Other: All systems not noted in ROS Statement are negative. Past Medical History Past Medical History: No Reported History Additional Past Medical History / Comment(s): cyst in vaginal area History of Any Multi-Drug Resistant Organisms: None Reported Past Surgical History: No Surgical Hx Reported Additional Past Anesthesia/Blood Transfusion Reaction / Comment(s): no family hx of problems with anesthesia Past Psychological History: Anxiety Smoking Status: Never smoker Past Alcohol Use History: Occasional Past Drug Use History: None Reported - Past Family History Mother Family Medical History: No Reported History General Exam Limitations: no limitations General appearance: alert, in no apparent distress Head exam: Present: atraumatic, normocephalic, normal inspection Neck exam: Present: normal inspection. Absent: tenderness, meningismus, lymphadenopathy Respiratory exam: Present: normal lung sounds bilaterally. Absent: respiratory distress, wheezes, rales, rhonchi, stridor Cardiovascular Exam: Present: regular rate, normal rhythm, normal heart sounds. Absent: systolic murmur, diastolic murmur, rubs, gallop, clicks GI/Abdominal exam: Present: soft, normal bowel sounds. Absent: distended, tenderness, guarding, rebound, rigid Course Vital Signs 02/04/19 12:58 Temperature 98.4 F Pulse Rate 84 Respiratory 18 Rate Blood Pressure 114/73 O2 Sat by Pulse 100 Oximetry Medical Decision Making - Medical Decision Making 23-year-old female present for missed menstrual cycle. Patient is positive . She has no abdominal pain no concern for ectopic. Patient urinalysis shows asymptomatic bacteriuria in will be treated for this. Return parameters discussed. - Lab Data Lab Results 02/04/19 02/04/19 Range/Units 13:30 13:30 Urine Color Yellow Urine Appearance Cloudy H (Clear) Urine pH 6.5 (5.0-8.0) Ur Specific [place] 1.018 (1.001-1.035) Urine Protein Trace H (Negative) Urine Glucose (UA) Negative (Negative) Urine Ketones 1+ H (Negative) Urine Blood Negative (Negative) Urine Nitrite Negative (Negative) Urine Bilirubin Negative (Negative) Urine Urobilinogen <2.0 (<2.0) mg/dL Ur Leukocyte Esterase Large H (Negative) Urine RBC 5 (0-5) /hpf Urine WBC 10 H (0-5) /hpf Ur Squamous Epith Cells 14 H (0-4) /hpf Urine Bacteria Rare H (None) /hpf Urine Mucus Many H (None) /hpf Urine HCG, Qual Detected (Not Detectd) Disposition Clinical Impression: , Asymptomatic bacteriuria during Disposition: HOME SELF-CARE Condition: Stable Instructions (If sedation given, give patient instructions): (ED) Additional Instructions: Please return to the Emergency Department if symptoms worsen or any other concerns. Prescriptions: Cephalexin [Keflex] 500 mg PO Q6HR 3 Days #12 cap Ufg-[id number]-[id number] Acid [-U Capsule] 1 each PO DAILY #30 cap Is patient prescribed a controlled substance at d/c from ED?: No Referrals: Yovani Cervantes MD [Primary Care Provider] - 1-2 days Time of Disposition: 13:59
== END 2019-02-04 14:07 | disposition home or self-care (01) ==
LOC: EC 12:51
DX: O99.89 Other specified diseases and conditions complicating pregnancy, childbirth and the puerperium (principal); R82.71 Bacteriuria; Z3A.00 Weeks of gestation of pregnancy not specified
CPT/HCPCS: 81001; 81025; 99284

== ENCOUNTER → 2019-03-12 | Outpatient (CLI) | payer OTHER ==
--- NOTE | 2019-03-12 11:30 | US ---
EXAMINATION TYPE: US OB >= 14 wk fetus DATE OF EXAM: 03/12/2019 COMPARISON: None CLINICAL HISTORY: Z36 confirm datesConfirm dates. TECHNIQUE: Transabdominal (TA) GESTATIONAL AGE / DATING Physician Established: Not yet established Dates by LMP: (10 weeks/4 days) EDC: 10/04/2019 Dates by First Scan: This is first scan Dates by Current Scan: (23 weeks/2 days) EDC: 07/07/2019 SURVEY IUP: Single PLACENTA: Posterior PREVIA: No Previa ASHLEY: 11.34 cm Normal CERVICAL LENGTH (transabdominal: norm > 3.0cm): 3.46 cm BIOMETRY PRESENTATION: Breech LIE: Transverse with head maternal R BPD: 5.44 cm 22 weeks / 4 days HC: 21.41 cm 23 weeks / 3 days AC: 19.42 cm 24 weeks / 1 days FL: 4.26 cm 23 weeks / 6 days ESTIMATED WEIGHT IN GRAMS: 640.06 grams ESTIMATED WEIGHT IN LBS/OZ: 1 lbs. 7 oz. WEIGHT PERCENTAGE BASED ON ESTABLISHED DATES: >97% HC/AC: 1.10 Normal FL/AC: 21.92 Normal HEART RATE: 144 bpm RHYTHM: Normal *Myometrial contraction noted. IMPRESSION: Single viable IUP measuring 23 weeks 2 days with a heart rate of 144 bpm.
== END | disposition home or self-care (01) ==
LOC: RADUSWWP 10:05
PROVIDERS: ATTEND Obstetrics & Gynecology
DX: Z36.89 Encounter for other specified antenatal screening (principal)
CPT/HCPCS: 76805

== ENCOUNTER 2019-04-11 17:06 | Outpatient (CLI) | payer OTHER ==
[2019-04-11 17:44] LABS: Appearance,Urine Clear (Clear); Bacteria,Urine Rare /hpf; Bilirubin,Urine Negative (Negative); Blood,Urine Negative (Negative); Color,Urine Yellow; Glucose,Urine (UA) Negative (Negative); Ketones,Urine 3+ (Negative); Leukocyte Esterase,Urine Small (Negative); Mucus,Urine Many /hpf; Nitrite,Urine Negative (Negative); PH, Urine 6.5 (5.0-8.0); Protein,Urine 1+ (Negative); RBC,Urine 2 /hpf (0-5); Squamous Epithelial Cell,Urine 3 /hpf (0-4); WBC,Urine 1 /hpf (0-5)
[2019-04-11 17:49] VITALS: BP 115/58; RESP 16; TEMP 97.8
[2019-04-11 18:51] VITALS: PULSE 77
--- NOTE | 2019-04-18 08:25 | P.MSEPDOC ---
Presenting Problems - Arrival Data Date of Arrival on Unit: 04/11/19 Time of Arrival on Unit: 17:06 Mode of Transport: Ambulatory - Complaint OB-Reason for Admission/Chief Complaint: Possible Onset of Labor Comment: cramping for the past 2-3 days Medical History - Information : 5 Para: 2 Term: 2 : 0 Abortions: Spontaneous or Elective: 2 Number of Living Children: 2 Review of Systems - Review of Systems Constitutional: No problems Breast: No problems ENT: No problems Cardiovascular: No problems Respiratory: No problems Gastrointestinal: No problems Genitourinary: No problems Musculoskeletal: No problems Neurological: No problems Skin: No problems Vital Signs - Temperature Temperature: 97.8 F Temperature Source: Oral - Pulse Right Brachial Pulse Rate: 77 Pulse Assessment Method: Automatic Cuff - Respirations Respiratory Rate: 16 Oxygen Delivery Method: Room Air O2 Sat by Pulse Oximetry: 100 - Blood Pressure Right Arm Blood Pressure: 115/58 Blood Pressure Mean: 77 Blood Pressure Source: Automatic Cuff Medical Screen Scoring (Pre) - Uterine Contractions Duration: N/A Intensity: N/A - Maternal Vital Signs Maternal Temperature: N/A Maternal Blood Pressure: N/A Signs of Preeclampsia: N/A Maternal Respirations: N/A - Pain Assessment Pain Location and Character: Abdomen Pain Scale Used: Numeric (1 - 10) Pain Intensity: 4 Pain Management Goal: 2 Pain Description: Cramping Pain Frequency: Intermittent Pain Duration Units: Days Pain Behavior: Vocalization Non-Pharmacological Interventions: Position/Reposition, Relaxation Technique - Maternal Trauma Maternal Trauma: N/A - Assessment Baseline FHR: 140 Heart Rate - NICHD Category: Category I (Normal) = 0 Position: N/A Station: N/A - Total Score Total Score (Pre): 0 - Level of Risk Level of Risk: Low (0-5) Physician Notification (Pre) - Physician Notified Physician Notified Date: 04/11/19 Physician Notified Time: 17:30 Physician/Practitioner Notifed:: Michael Spoke With: Michael New Order Received: Yes - Notification Comment Comment: order for FFN and UA Medical Screen Scoring (Post) - Cervical Exam Dilation: 0 cm = 0 Membranes: Intact - Uterine Contractions Frequency: N/A Duration: N/A Intensity: N/A - Maternal Vital Signs Maternal Temperature: N/A Maternal Blood Pressure: N/A Signs of Preeclampsia: N/A Maternal Respirations: N/A - Pain Assessment Pain Location and Character: Abdomen Pain Scale Used: Numeric (1 - 10) Pain Intensity: 4 Pain Management Goal: 2 Pain Description: Cramping Pain Frequency: Intermittent Pain Duration Units: Days Pain Behavior: Vocalization Pain Aggravating Factors: Activity, Walking - Maternal Trauma Maternal Trauma: N/A - Assessment Heart Rate: 140 Heart Rate - NICHD Category: Category I (Normal) = 0 Position: N/A, Non-vertex & not laboring = 3 Station: N/A - Total Score Total Score (Post): 3 - Post Treatment Level of Risk Post Treatment Level of Risk: Low (0-5) Physician Notification (Post) - Physician Notified Physician Notified Date: 04/11/19 Physician Notified Time: 18:43 Physician/Practitioner Notified:: Michael Spoke With: Michael New Order Received: Yes - Notification Comment Comment: pt may be discharged home after given popsickle and apple juice Disposition - Disposition OB Disposition: Discharge to home Discharge Date: 04/11/19 Discharge Time: 18:51 I agree with the RN Medical Screening Exam: Yes Risk & Benefit of care provided described in d/c instruction: Yes Diagnosis: FALSE LABOR BEFORE 37 COMPLETED WEEKS OF GEST, THIRD TRI
== END 2019-04-11 18:59 | disposition home or self-care (01) ==
LOC: FBPOP 17:06
PROVIDERS: ATTEND Obstetrics & Gynecology
DX: O47.03 False labor before 37 completed weeks of gestation, third trimester (principal); Z3A.00 Weeks of gestation of pregnancy not specified
CPT/HCPCS: 82731; 81001; G0463; 99213

== ENCOUNTER 2019-04-16 19:29 | Emergency (ER) | payer OTHER ==
[2019-04-16 20:17] VITALS: RESP 16
--- NOTE | 2019-04-16 21:19 | XR ---
PROCEDURE: XR ankle complete RT - 3V DATE AND TIME: 04/16/2019 8:32 PM CLINICAL INDICATION: PHH; Pain TECHNIQUE: Department protocol COMPARISON: None FINDINGS: There is no fracture or malalignment. The soft tissues are unremarkable. IMPRESSION: NO ACUTE PROCESS.
--- NOTE | 2019-04-16 21:47 | ED ---
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 Ankle sprain, she did have some a step on her ankle she stepped in a hole with history of traumatic right ankle pain in the past. Patient does have a walking boot which is wearing currently. Patient states she is just here taking the ankle evaluated emergency to give her the ability to return to work tomorrow. Patient denies any other injuries or complaints MD Complaint: ankle injury -: hour(s) Injury: Ankle: Right Type of Injury: inversion Place: home Severity: mild Severity scale (1-10): 2 Associated Symptoms: swelling, able to partially bear weight - Related Data Home Medications Medication Instructions Recorded Confirmed No Known Home Medications 04/16/19 04/16/19 Allergies Allergy/AdvReac Type Severity Reaction Status Date / Time No Known Allergies Allergy Verified 04/16/19 21:51 Review of Systems ROS Statement: Those systems with pertinent positive or pertinent negative responses have been documented in the HPI. ROS Other: All systems not noted in ROS Statement are negative. Past Medical History Past Medical History: No Reported History Additional Past Medical History / Comment(s): cyst in vaginal area, History of Any Multi-Drug Resistant Organisms: None Reported Past Surgical History: No Surgical Hx Reported Additional Past Anesthesia/Blood Transfusion Reaction / Comment(s): no family hx of problems with anesthesia Past Psychological History: Anxiety Smoking Status: Never smoker Past Alcohol Use History: None Reported Past Drug Use History: None Reported - Past Family History Mother Family Medical History: No Reported History General Exam Limitations: no limitations, physical limitation General appearance: alert, in no apparent distress Head exam: Present: atraumatic, normocephalic, normal inspection Eye exam: Present: normal appearance, PERRL, EOMI. Absent: scleral icterus, conjunctival injection, periorbital swelling ENT exam: Present: normal exam, mucous membranes moist Neck exam: Present: normal inspection. Absent: tenderness, meningismus, lymphadenopathy Respiratory exam: Present: normal lung sounds bilaterally. Absent: respiratory distress, wheezes, rales, rhonchi, stridor Cardiovascular Exam: Present: regular rate, normal rhythm, normal heart sounds. Absent: systolic murmur, diastolic murmur, rubs, gallop, clicks GI/Abdominal exam: Present: soft, normal bowel sounds. Absent: distended, tenderness, guarding, rebound, rigid Extremities exam: Present: normal inspection, full ROM, normal capillary refill. Absent: tenderness, pedal edema, joint swelling, calf tenderness Back exam: Present: normal inspection Neurological exam: Present: alert, oriented X3, CN II-XII intact Psychiatric exam: Present: normal affect, normal mood Skin exam: Present: warm, dry, intact, normal color. Absent: rash Course Vital Signs 04/16/19 04/16/19 20:11 22:07 Temperature 98.0 F 98 F Pulse Rate 81 78 Respiratory 16 16 Rate Blood Pressure 101/56 121/75 O2 Sat by Pulse 100 96 Oximetry Medical Decision Making - Medical Decision Making 43 female the ER with right ankle pain. Patient does have current walking boot. Encouraged ice and elevate, patient is able to return to work at her request, - Radiology Data Radiology results: report reviewed (X-ray of right ankle is negative for traumatic injury), image reviewed Disposition Clinical Impression: Right ankle sprain Disposition: HOME SELF-CARE Condition: Good Instructions (If sedation given, give patient instructions): Ankle Sprain (ED) Is patient prescribed a controlled substance at d/c from ED?: No Referrals: Yovani Cervantes MD [Primary Care Provider] - 1-2 days
[2019-04-16 22:08] VITALS: BP 121/75; PULSE 78; TEMP 98
== END 2019-04-16 22:08 | disposition home or self-care (01) ==
LOC: EC 19:29
DX: S93.401A Sprain of unspecified ligament of right ankle, initial encounter (principal); W51.XXXA Accidental striking against or bumped into by another person, initial encounter; Y92.009 Unspecified place in unspecified non-institutional (private) residence as the place of occurrence of the external cause
CPT/HCPCS: 99284

== ENCOUNTER 2019-06-30 04:09 | Inpatient (IN) | payer BC, OTHER ==
[2019-06-30] MEDS ORDERED: LIDOCAINE 0.5% (PF) 5 MG/ML (50 ML SDV) SQ PRN (04:28)
[2019-06-30] MEDS ORDERED: OXYTOCIN 10 UNIT/ML 1 ML VIAL IM PRN (04:28)
[2019-06-30] MEDS ORDERED: TERBUTALINE 1 MG/ML VIAL SQ PRN (04:28)
[2019-06-30] MEDS ORDERED: CARBOPROST TROMETHAMINE 250 MCG/ML 1 ML AMP IM PRN (04:28)
[2019-06-30] MEDS ORDERED: AMPICILLIN 2,000 MG in SODIUM CHLORIDE 0.9% 100 ML IVPB STA (04:28)
[2019-06-30] MEDS ORDERED: METHYLERGONOVINE 0.2 MG/ML 1 ML AMP IM PRN (04:28)
[2019-06-30] MEDS: LACTATED RINGERS 1,000 ML IV SCH ×2 (04:51→07:41)
[2019-06-30 04:58] VITALS: BMI 34.4
[2019-06-30 05:13] LABS: Anisocytosis Slight; Basophils % (A) 0 %; Eosinophils # (A) 0.1 k/uL (0-0.7); Eosinophils % (A) 1 %; HCT 28.6 % (34.0-46.0); HGB 8.8 gm/dL (11.4-16.0); Hypochromasia Marked; Lymphocytes # (A) 1.9 k/uL (1.0-4.8); Lymphocytes % (A) 28 %; MCH 23.2 pg (25.0-35.0); MCHC 30.9 g/dL (31.0-37.0); MCV 75.2 fL (80.0-100.0); Mean Platelet Volume 9.5; Microcytosis Moderate; Monocytes # (A) 0.5 k/uL (0-1.0); Monocytes % (A) 7 %; Neutrophils # (A) 4.1 k/uL (1.3-7.7); Neutrophils % (A) 62 %; Platelet Count 175 k/uL (150-450); Poikilocytosis Moderate; RDW 18.2 % (11.5-15.5); WBC 6.6 k/uL (3.8-10.6)
[2019-06-30] MEDS: OXYTOCIN 30 UNITS/500 ML NS 30 UNIT in SALINE 1 500ML.BAG IV SCH ×2 (07:18→12:14)
[2019-06-30] MEDS: AMPICILLIN 1,000 MG in SODIUM CHLORIDE 0.9% 50 ML IVPB SCH ×2 (08:41→12:51)
[2019-06-30] MEDS ORDERED: diphenhydrAMINE 25 MG CAP PO PRN (14:36)
[2019-06-30] MEDS ORDERED: diphenhydrAMINE 50 MG CAP PO PRN (14:36)
[2019-06-30] MEDS ORDERED: BENZOCAINE/MENTHOL SPRAY 1 GM/SPRAY AEROSOL TOPICAL PRN (14:36)
[2019-06-30] MEDS ORDERED: diphenhydrAMINE 50 MG/ML 1 ML VIAL IVP PRN ×2 (14:36)
[2019-06-30] MEDS ORDERED: HYDROCORTISONE 2.5% RECTAL CREAM 30 GM TUBE RECTAL PRN (14:36)
[2019-06-30] MEDS ORDERED: ZOLPIDEM 5 MG TAB PO PRN (14:36)
[2019-06-30] MEDS ORDERED: SIMETHICONE 80 MG CHEWABLE PO PRN (14:36)
[2019-06-30] MEDS ORDERED: ACETAMINOPHEN TAB 325 MG TAB PO PRN (14:36)
[2019-06-30] MEDS ORDERED: LANOLIN CREAM 5 GM TUBE TOPICAL PRN (14:36)
[2019-06-30] MEDS ORDERED: WITCH HAZEL 1 EACH MED..PAD TOPICAL PRN (14:36)
--- NOTE | 2019-06-30 14:38 | P.HPOB ---
History of Present Illness H&P Date: 06/30/19 Chief Complaint: Intrauterine at term: Active labor Tory Ken is a 2015 at 39 weeks gestation who arrives complaining of contractions every 4 minutes making cervical change. Initially she was dilated 5 cm at presentation 60% effaced -3 station with category 1 tracing. Her Precis course otherwise was unremarkable and she is feeling well at this time. Other than contractions she has denied any leaking of fluid or rupture membranes. She does have a history of relatively rapid labor and she is groupie strep positive. Blood type is A+ Rh antibody was negative, rubella immune/hepatitis surface antigen and RPR and HIV were negative and negative. On physical exam vital signs are stable and afebrile. Heart regular, lungs clear, extremities without pain. Abdomen soft gravid uterus is noted. Assessment intrauterine at term. Plan expect spontaneous vaginal delivery. Past Medical History Past Medical History: No Reported History Additional Past Medical History / Comment(s): cyst in vaginal area, History of Any Multi-Drug Resistant Organisms: None Reported Past Surgical History: No Surgical Hx Reported Past Anesthesia/Blood Transfusion Reactions: No Reported Reaction Additional Past Anesthesia/Blood Transfusion Reaction / Comment(s): no family hx of problems with anesthesia Past Psychological History: Anxiety, Depression Additional Psychological History / Comment(s): not currently medicated Smoking Status: Never smoker Past Alcohol Use History: None Reported Past Drug Use History: None Reported - Past Family History Mother Family Medical History: No Reported History Medications and Allergies Home Medications Medication Instructions Recorded Confirmed Type No Known Home Medications 04/16/19 06/30/19 History Allergies Allergy/AdvReac Type Severity Reaction Status Date / Time No Known Allergies Allergy Verified 06/30/19 04:27 Exam Osteopathic Statement: *. No significant issues noted on an osteopathic structural exam other than those noted in the History and Physical/Consult. Vital Signs Temp Pulse Resp BP Pulse Ox 06/30/19 04:30 98.1 F 69 16 110/70 100 Intake and Output 06/29/19 06/30/19 06/30/19 22:59 06:59 14:59 Other: # Voids 1 Weight 82.554 kg - OBG Physical Exam Breast: both: normal (no masses) Abdomen: bowel sounds normal, no diffuse tenderness, no bruit present, no guarding noted, no hepatomegaly, no splenomegaly, no mass Vulva: both: normal Vagina: normal moisture, no discharge Cervix: no lesion, no discharge Uterus: normal size, normal contour Adnexa: both: normal Anus/Rectum: normal perianal skin, no rectal mass, no hemorrhoids, heme negative Results Result Diagrams: 06/30/19 04:50 Abnormal Lab Results - Last 24 Hours (Table) 06/30/19 Range/Units 04:50 Hgb 8.8 L (11.4-16.0) gm/dL Hct 28.6 L (34.0-46.0) % MCV 75.2 L (80.0-100.0) fL MCH 23.2 L (25.0-35.0) pg MCHC 30.9 L (31.0-37.0) g/dL RDW 18.2 H (11.5-15.5) %
--- NOTE | 2019-06-30 14:40 | P.PROBDLV ---
Vaginal Delivery Note - . Vaginal Delivery Note: Patient progressed to complete and pushing with spontaneous vaginal delivery of a viable male over an intact perineum. Lung deliver the head from left occiput anterior position anterior posterior shoulders were easily delivered. Mouth and nares were then bulb suctioned and baby was then placed on mother's abdomen where the umbilical cord was allowed to pulsate for 30 seconds prior to clamping and cutting. Nursery personnel was present to assume care. Placenta was then delivered intact and Pitocin was added to the IV. scores were 9 and 9 at one and 5 minutes. Both mother and baby are stable following delivery weight is pending. Incidental true knot in the umbilical cord.
[2019-06-30] MEDS ORDERED: OXYTOCIN 20 UNITS/1000 ML NS 1,000 ML IV SCH (14:45)
[2019-06-30] MEDS: IBUPROFEN 600 MG TAB PO PRN ×2 (14:51→22:05)
[2019-06-30 20:55] VITALS: RESP 16
[2019-06-30] MEDS: SENNOSIDES-DOCUSATE SODIUM 1 EACH TAB PO SCH (22:05)
[2019-07-01] MEDS: SENNOSIDES-DOCUSATE SODIUM 1 EACH TAB PO SCH ×2 (07:57→19:54)
[2019-07-01] MEDS: IBUPROFEN 600 MG TAB PO PRN (07:57)
--- NOTE | 2019-07-01 10:16 | P.PNOBGVD ---
Subjective - Subjective Principal diagnosis: day 1 Interval history: Patient is doing very well day 1. She is involuting, voiding and tolerating her diet. She voices no complaints and likely be discharged to home tomorrow. Patient reports: Reports appetite normal, Reports voiding normally, Reports pain well controlled, Reports ambulating normally : doing well Objective - Latest Vital Signs Latest vital signs: Vital Signs Temp Pulse Resp BP 07/01/19 07:56 97.4 F L 57 L 16 125/70 07/01/19 00:00 98.4 F 73 16 107/67 06/30/19 20:00 98.3 F 73 16 101/59 06/30/19 16:40 98.5 F 82 18 106/62 06/30/19 16:10 98.1 F 73 18 101/60 06/30/19 15:40 75 106/60 06/30/19 15:25 97.7 F 82 16 112/70 06/30/19 15:10 67 115/66 06/30/19 14:55 97.7 F 85 18 106/59 06/30/19 14:40 97.1 F L 71 18 110/51 Intake and Output 06/30/19 07/01/19 07/01/19 22:59 06:59 14:59 Other: # Voids 1 2 1 - Exam Lungs: bilateral: normal Chest: Normal S1, Normal S2 Extremities: Present: normal Abdomen: Present: normal appearance, soft Uterus: Present: normal, firm
[2019-07-02 07:47] VITALS: BP 103/70; PULSE 64; TEMP 98.3
--- NOTE | 2019-07-02 09:02 | P.DS ---
Providers Date of admission: 06/30/19 04:22 Expected date of discharge: 07/02/19 Attending physician: Behzad Parks Primary care physician: Stated None Hospital Course: Patient is doing very well day 2. She is involuting, voiding and tolerating her diet. She voices no complaint. Vital signs are stable and afebrile. Heart regular, lungs clear, extremities without pain. Abdomen is soft uterus is firm below the umbilicus and lochia is reported be light. Assessment day 2. Plan discharged home follow up with me in 6 weeks. Prescription for Motrin is provided. All questions are answered for her prior to discharge. Discharge instructions reviewed. Patient Condition at Discharge: Good Plan - Discharge Summary New Discharge Prescriptions: New Ibuprofen [Motrin] 600 mg PO Q6HR PRN #30 tab PRN Reason: Pain Discharge Medication List Ibuprofen [Motrin] 600 mg PO Q6HR PRN #30 tab 07/02/19 [Rx] Follow up Appointment(s)/Referral(s): Behzad Parks DO [Doctor of Osteopathic Medicine] - 6 Weeks Activity/Diet/Wound Care/Special Instructions: No heavy lifting, limit stairs and driving, and pelvic rest. If any high temperatures, heavy bleeding, or severe pain call my office Discharge Disposition: HOME SELF-CARE
== END 2019-07-02 12:00 | disposition home or self-care (01) | DRG 807 ==
LOC: FBPOP 04:09 → 4FBP 04:22
PROVIDERS: ADMIT Obstetrics & Gynecology; ATTEND Obstetrics & Gynecology
PROC: 10E0XZZ Delivery of Products of Conception, External Approach (ICD-10-PCS; principal; 2019-06-30)
DX: O69.2XX0 Labor and delivery complicated by other cord entanglement, with compression, not applicable or unspecified (principal); Z37.0 Single live birth; O99.344 Other mental disorders complicating childbirth; F32.9 Major depressive disorder, single episode, unspecified; F41.9 Anxiety disorder, unspecified; O99.824 Streptococcus B carrier state complicating childbirth; Z3A.39 39 weeks gestation of pregnancy
CPT/HCPCS: 85025; 86850; 86900; 86901

== ENCOUNTER → 2021-01-04 | Outpatient (CLI) | payer OTHER ==
--- NOTE | 2021-01-05 08:51 | US ---
EXAMINATION TYPE: US OB >= 14 wk fetus DATE OF EXAM: 01/04/2021 COMPARISON: None CLINICAL HISTORY: O36.62X0 Large for datesAnatomy TECHNIQUE: Transabdominal (TA) GESTATIONAL AGE / DATING Physician Established: Not yet established Dates by LMP: LMP unknown Dates by First Scan: No previous this is first scan Dates by Current Scan: (21 weeks/0 days) EDC: 05/17/2021 SURVEY IUP: Single PLACENTA: Posterior PREVIA: No Previa ASHLEY: 15 cm Normal CERVICAL LENGTH (transabdominal: norm > 3.0cm): 2.7 cm BIOMETRY PRESENTATION: Variable LIE: Variable BPD: 4.93 cm 20 weeks / 6 days HC: 18.93 cm 21 weeks / 2 days AC: 16.18 cm 21 weeks / 2 days FL: 3.6 cm 21 weeks / 3 days ESTIMATED WEIGHT IN GRAMS: 415.02 grams ESTIMATED WEIGHT IN LBS/OZ: 0 lbs. 15 oz. HC/AC: 1.17cm Normal FL/AC: 22.31cm Normal HEART RATE: 167 bpm RHYTHM: Normal ANATOMY SEEN (within normal limits): * Lateral Vent (< 1 cm) .6 cm * Cisterna Magna (< 1.1 cm) .5cm * Nuchal Fold (< 0.6 cm) .2 cm * Cerebellum (varies with age) 1.9. cm Choroid Plexus (bilateral) Midline Falx Cavus Septi Pellucidi Four Chamber Heart Outflow tracts: LVOT/RVOT Stomach Situs Nose / Lips Diaphragm Kidneys (bilateral) Bladder Cord Insert Three Vessel Cord Arms (bilateral) Legs (bilateral) ANATOMY SEEN (appear within normal limits): ANATOMY NOT SEEN: Sag and transverse spine. Patient will come back in 2 weeks. IMPRESSION: 1. Single intrauterine gestation estimated at 21 weeks 0 days gestation based on current ultrasound m easurements. Cardiac activity measures 167 bpm. 2. anatomy visualized appears within normal limits. Additional evaluation of the spine is recom mended. Follow-up appointment has been made.
== END | disposition home or self-care (01) ==
LOC: RADUSWWP 15:40
PROVIDERS: ATTEND Obstetrics & Gynecology
DX: O36.62X0 Maternal care for excessive fetal growth, second trimester, not applicable or unspecified (principal); Z3A.21 21 weeks gestation of pregnancy
CPT/HCPCS: 76811

== ENCOUNTER → 2021-01-18 | Outpatient (CLI) | payer OTHER ==
--- NOTE | 2021-01-18 13:38 | US ---
EXAMINATION TYPE: US OB Call Back DATE OF EXAM: 01/18/2021 COMPARISON: Correlation to the survey of 01/04/2021 CLINICAL HISTORY: 25-year-old female O36.62X0 LARGE FOR DATES. Evaluate spine GESTATIONAL AGE / DATING HEART RATE: 152 bpm RHYTHM: Normal ANATOMY STILL NOT SEEN (requiring an additional callback appt): due to position Longitudinal Spine Transverse Spine *patient scheduled for 02/04/21 at 12:20pm. Due to patient's schedule, unable to come in for a sooner appointment IMPRESSION: Due to position, still unable to adequately assess the spine. The skin line could not be deline ated due to abutting soft tissue. Rescan/follow-up scheduled for 02/04/2021.
== END | disposition home or self-care (01) ==
LOC: RADUSWWP 10:47
PROVIDERS: ATTEND Obstetrics & Gynecology
DX: O36.62X0 Maternal care for excessive fetal growth, second trimester, not applicable or unspecified (principal); Z3A.00 Weeks of gestation of pregnancy not specified

== ENCOUNTER 2021-02-01 19:17 | Outpatient (CLI) | payer OTHER ==
[2021-02-01 20:29] VITALS: BP 106/58; PULSE 97; RESP 16; TEMP 97
--- NOTE | 2021-02-13 08:48 | P.MSEPDOC ---
Presenting Problems - Arrival Data Date of Arrival on Unit: 02/01/21 Time of Arrival on Unit: 19:17 Mode of Transport: Ambulatory - Complaint OB-Reason for Admission/Chief Complaint: Decreased Movement Comment: Pt arrives to triage with c/o decreased movement. States she fell off her. porch yesterday and landed on her side/back and has not been feeling baby move as much. since the fall. States she has felt movement today but not as much as usual. Denies pain. or vaginal bleeding. Abdomen soft and non tender to palpation. Medical History - Information : 5 Para: 3 Term: 3 : 0 Abortions: Spontaneous or Elective: 1 Number of Living Children: 3 - Gestational Age Gestational Age by RBEEKAH (wks/days): 25 Weeks and 0 Days Review of Systems - Review of Systems Constitutional: No problems Breast: No problems ENT: No problems Cardiovascular: No problems Respiratory: No problems Gastrointestinal: No problems Genitourinary: No problems Musculoskeletal: No problems Neurological: No problems Skin: No problems Vital Signs - Temperature Temperature: 97.0 F Temperature Source: Temporal Artery Scan - Pulse Apical Pulse Rate: 97 Pulse Assessment Method: Automatic Cuff - Respirations Respiratory Rate: 16 Oxygen Delivery Method: Room Air O2 Sat by Pulse Oximetry: 98 - Blood Pressure Right Arm Blood Pressure: 106/58 Blood Pressure Mean: 74 Blood Pressure Source: Automatic Cuff Medical Screen Scoring (Pre) - Cervical Exam Dilation: Exam Deferred Effacement: Exam Deferred Membranes: Intact - Uterine Contractions Frequency: N/A Duration: N/A Intensity: N/A - Maternal Vital Signs Maternal Temperature: N/A Maternal Blood Pressure: N/A Signs of Preeclampsia: N/A Maternal Respirations: N/A - Maternal Trauma Maternal Trauma: N/A - Assessment - Baby A Baseline FHR: 135 Heart Rate - NICHD Category: Category I (Normal) = 0 Position: N/A Station: N/A - Total Score - Baby A Total Score - Baby A: 0 - Total Score - Baby B Total Score - Baby B: 0 - Total Score - Baby C Total Score - Baby C: 0 - Level of Risk - Baby A Level of Risk - Baby A: Low (0-5) - Level of Risk - Baby B Level of Risk - Baby B: Low (0-5) - Level of Risk - Baby C Level of Risk - Baby C: Low (0-5) Physician Notification (Pre) - Physician Notified Physician Notified Date: 02/01/21 Physician Notified Time: 20:04 New Order Received: Yes - Notification Comment Comment: Dr. Rodriguez called re: maternal fall yesterday morning and c/o decresed . movement, states feeling movement just "not as much as normal", no bleeding or pain,. abdomen soft/non tender, heart tones, audible movement heard through EFM,. reports of increased movement since arrival to triage and depression screen score. Orders received to d/c pt home and encourage pt to talk about depression screening at. next appt with Dr. Parks. Disposition - Disposition OB Disposition: Discharge to home Discharge Date: 02/01/21 Discharge Time: 20:17 I agree with the RN Medical Screening Exam: Yes Case reviewed; plan agreed upon as documented in EMR&OBIX.: Yes Diagnosis: DECREASED MOVEMENTS, THIRD TRIMESTER, FETUS 1
== END 2021-02-01 20:17 | disposition home or self-care (01) ==
LOC: FBPOP 19:17
PROVIDERS: ATTEND Obstetrics & Gynecology
DX: O36.8130 Decreased fetal movements, third trimester, not applicable or unspecified (principal); Z3A.35 35 weeks gestation of pregnancy
CPT/HCPCS: 99213

== ENCOUNTER → 2021-02-04 | Outpatient (CLI) | payer OTHER ==
--- NOTE | 2021-02-04 16:12 | US ---
EXAMINATION TYPE: US OB Call Back DATE OF EXAM: 02/04/2021 COMPARISON: US CLINICAL HISTORY: OB CALL BACK. OB call back for spine and heart rate HEART RATE: 126 bpm RHYTHM: Normal ANATOMY SEEN (third anatomic survey look): Longitudinal Spine: C and T spine visualized clearly and wnl, L spine somewhat difficult to delineat e due to breech position, however visualized portions appeared wnl Transverse Spine: wnl IMPRESSION: 1. Limited OB ultrasound for small parts appears normal for images obtained.
== END ==
LOC: RADUSWWP 12:21
PROVIDERS: ATTEND Obstetrics & Gynecology
DX: Z53.9 Procedure and treatment not carried out, unspecified reason (principal)

== ENCOUNTER 2021-03-18 20:49 | Emergency (ER) | payer BC, OTHER ==
[2021-03-18 20:55] VITALS: BP 101/64; PULSE 81; RESP 16; TEMP 97.9
--- NOTE | 2021-03-18 21:22 | ED ---
Skin/Abscess/FB HPI - General Chief complaint: Skin/Abscess/Foreign Body Stated complaint: Glass in L foot Time Seen by Provider: 03/18/21 21:06 Source: patient Mode of arrival: ambulatory Limitations: no limitations - History of Present Illness Initial comments: This patient is a 25-year-old woman who presents with approximately one week of having a tender spot to the plantar surface of the left foot. The patient does not recall any definite injury but suspect she may have stepped on a small piece of glass. That is what it feels like to her. There is no tenderness and will she is putting pressure on her foot. complaint: other Onset/Timin -: week(s) Tetanus Up to Date: yes Location: L foot Quality: sharp Consistency: intermittent Improves with: none Worsens with: other (Weight Bearing) Context: none Associated symptoms: denies other symptoms Treatments Prior to Arrival: none - Related Data Home Medications Medication Instructions Recorded Confirmed No Known Home Medications 02/01/21 02/01/21 Allergies Allergy/AdvReac Type Severity Reaction Status Date / Time No Known Allergies Allergy Verified 03/18/21 20:53 Review of Systems ROS Statement: Those systems with pertinent positive or pertinent negative responses have been documented in the HPI. ROS Other: All systems not noted in ROS Statement are negative. Constitutional: Denies: fever, chills Cardiovascular: Denies: palpitations Skin: Reports: as per HPI, lesions. Denies: rash, change in color Neurological: Denies: weakness, numbness Past Medical History Past Medical History: No Reported History Additional Past Medical History / Comment(s): cyst in vaginal area, History of Any Multi-Drug Resistant Organisms: None Reported Past Surgical History: No Surgical Hx Reported Past Anesthesia/Blood Transfusion Reactions: No Reported Reaction Additional Past Anesthesia/Blood Transfusion Reaction / Comment(s): no family hx of problems with anesthesia Past Psychological History: Anxiety, Depression Smoking Status: Never smoker - Past Family History Mother Family Medical History: No Reported History General Exam Limitations: no limitations General appearance: alert, in no apparent distress Cardiovascular Exam: Present: other (Left dorsalis pedis pulse is normal. C apillary refill normal) Left Ankle exam: Present: normal inspection, full ROM. Absent: tenderness, swelling Foot/Toe exam: Present: full ROM, tenderness. Absent: swelling, abrasion, laceration, ecchymosis, deformity, crepitus, dislocation, erythema, amputation Neurovascular tendon exam: Present: no vascular compromise. Absent: abnormal cap refill, motor deficit, sensory deficit, tendon deficit Neurological exam: Absent: motor sensory deficit (No deficit throughout the left foot) Skin exam: Present: warm, dry, intact, normal color, other (There is a small flesh-colored papillary lesion approximately 6-8 mm in diameter plantar aspect left foot). Absent: rash Course Vital Signs 03/18/21 20:53 Temperature 97.9 F Pulse Rate 81 Respiratory 16 Rate Blood Pressure 101/64 O2 Sat by Pulse 99 Oximetry Disposition Clinical Impression: Plantar wart, left foot Disposition: HOME SELF-CARE Condition: Good Instructions (If sedation given, give patient instructions): Plantar Wart (ED) Is patient prescribed a controlled substance at d/c from ED?: No Referrals: Yovani Cervantes MD [Primary Care Provider] - 1-2 days
--- NOTE | 2021-03-18 22:04 | XR ---
PROCEDURE: XR foot complete LT - 3V DATE AND TIME: 03/18/2021 9:23 PM CLINICAL INDICATION: PHH; foreign body TECHNIQUE: Department protocol COMPARISON: 07/01/2018 FINDINGS: Bones and joints are unremarkable. The soft tissues are unremarkable. No radiopaque foreign bodies are seen, or soft tissue emphysema. IMPRESSION: Negative examination.
== END 2021-03-18 23:17 | disposition home or self-care (01) ==
LOC: EC 20:49
DX: B07.0 Plantar wart (principal); W22.8XXA Striking against or struck by other objects, initial encounter; F32.9 Major depressive disorder, single episode, unspecified
CPT/HCPCS: 99283

== ENCOUNTER 2021-03-28 15:10 | Emergency (ER) | payer BC, OTHER ==
[2021-03-28 15:29] VITALS: BP 125/73; PULSE 85; RESP 16; TEMP 97.1
[2021-03-28] MEDS ORDERED: DIPH,PERTUS(ACELL)TETVAC-LF 0.5 ML VIAL IM ONE (15:50)
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
== END 2021-03-28 18:49 | disposition home or self-care (01) ==
LOC: EC 15:10
DX: O9A.213 Injury, poisoning and certain other consequences of external causes complicating pregnancy, third trimester (principal); M25.562 Pain in left knee; S90.812A Abrasion, left foot, initial encounter; O99.343 Other mental disorders complicating pregnancy, third trimester; F41.9 Anxiety disorder, unspecified; F32.9 Major depressive disorder, single episode, unspecified; Z3A.35 35 weeks gestation of pregnancy; Y92.410 Unspecified street and highway as the place of occurrence of the external cause; V89.2XXA Person injured in unspecified motor-vehicle accident, traffic, initial encounter
CPT/HCPCS: 90471; 90715; 99284

== ENCOUNTER 2021-05-14 | Inpatient (IN) | payer OTHER | END 2021-05-16 10:42 | disposition home or self-care (01) | DRG 807 | PROVIDERS: ADMIT Obstetrics & Gynecology | PROC: 10E0XZZ Delivery of Products of Conception, External Approach (ICD-10-PCS; principal; 2021-05-14) | DX: O69.81X0 Labor and delivery complicated by cord around neck, without compression, not applicable or unspecified (principal); Z37.0 Single live birth; O77.0 Labor and delivery complicated by meconium in amniotic fluid; O99.02 Anemia complicating childbirth; D64.9 Anemia, unspecified; Z3A.39 39 weeks gestation of pregnancy | CPT/HCPCS: 59025; 85025; 86850; 86900; 86901; 88307; 99213 ==

== ENCOUNTER 2024-05-12 16:55 | Emergency (ER) | payer OTHER ==
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
--- NOTE | 2024-05-12 17:30 | XR ---
EXAMINATION TYPE: XR foot complete RT DATE OF EXAM: 05/12/2024 CLINICAL HISTORY: pain TECHNIQUE: Frontal, lateral and oblique images of the left foot are obtained. COMPARISON: None. FINDINGS: There is no acute fracture/dislocation evident. The joint spaces appear within normal reynolds its. The overlying soft tissue appears unremarkable. IMPRESSION: There is no acute fracture or dislocation. ICD 10 NO FRACTURE, INITIAL EVALUATION
[2024-05-12 18:06] VITALS: BP 112/72; PULSE 86; RESP 18; TEMP 97.9
== END 2024-05-12 18:05 | disposition home or self-care (01) ==
LOC: EC 16:55
DX: M79.671 Pain in right foot (principal); M79.89 Other specified soft tissue disorders; V49.9XXA Car occupant (driver) (passenger) injured in unspecified traffic accident, initial encounter; Y92.410 Unspecified street and highway as the place of occurrence of the external cause
CPT/HCPCS: 99283

== ENCOUNTER 2024-07-18 20:14 | Emergency (ER) | payer OTHER ==
[2024-07-18 20:18] VITALS: TEMP 98.3
--- NOTE | 2024-07-18 21:06 | ED ---
General Adult HPI - General Chief complaint: Nausea/Vomiting/Diarrhea Stated complaint: weakness Time Seen by Provider: 07/18/24 20:31 Source: patient, RN notes reviewed Mode of arrival: ambulatory Limitations: no limitations - History of Present Illness Initial comments: 28-year-old female presents emergency department chief complaint of generalized nausea vomiting over the past month. Patient is also concerned that she may possibly be . She denies urinary changes or bowel changes. Denies hematemesis or coffee-ground emesis. Denies fevers, chills, cough, rhinorrhea, congestion. Patient states that her menstrual cycles have been regular, denies abnormal uterine bleeding, vaginal discharge. She denies abdominal pain or previous surgeries on her abdomen. - Related Data Home Medications Medication Instructions Recorded Confirmed Sertraline HCl [Zoloft] 1 tab PO ONCE 05/13/21 05/13/21 Previous Rx's Medication Instructions Recorded Ibuprofen [Motrin] 600 mg PO Q6H #30 tab 05/15/21 Allergies Allergy/AdvReac Type Severity Reaction Status Date / Time No Known Allergies Allergy Verified 07/18/24 20:19 Review of Systems ROS Statement: Those systems with pertinent positive or pertinent negative responses have been documented in the HPI. ROS Other: All systems not noted in ROS Statement are negative. Past Medical History Past Medical History: No Reported History Additional Past Medical History / Comment(s): cyst in vaginal area, History of Any Multi-Drug Resistant Organisms: None Reported Past Surgical History: No Surgical Hx Reported Past Anesthesia/Blood Transfusion Reactions: No Reported Reaction Additional Past Anesthesia/Blood Transfusion Reaction / Comment(s): no family hx of problems with anesthesia Past Psychological History: Anxiety, Depression Smoking Status: Never smoker Past Alcohol Use History: None Reported Past Drug Use History: Marijuana - Past Family History Mother Family Medical History: No Reported History General Exam - General Exam Comments Initial Comments: Visual Physical Exam Vital signs reviewed General: Well-appearing, nontoxic, no acute distress. Head: Normocephalic, atraumatic Eyes: PERRLA, EOMI ENT: Airway patent Chest: Nonlabored breathing Skin: No visual rash, normal skin tone Neuro: Alert and oriented 3 Musculoskeletal: No gross abnormalities Limitations: no limitations General appearance: alert, in no apparent distress Head exam: Present: atraumatic, normocephalic, normal inspection Eye exam: Present: normal appearance, PERRL, EOMI. Absent: scleral icterus, conjunctival injection, periorbital swelling ENT exam: Present: normal exam, mucous membranes moist Neck exam: Present: normal inspection. Absent: tenderness, meningismus, lymphadenopathy Respiratory exam: Present: normal lung sounds bilaterally. Absent: respiratory distress, wheezes, rales, rhonchi, stridor Cardiovascular Exam: Present: regular rate, normal rhythm, normal heart sounds. Absent: systolic murmur, diastolic murmur, rubs, gallop, clicks GI/Abdominal exam: Present: soft, normal bowel sounds. Absent: distended, tenderness, guarding, rebound, rigid Extremities exam: Present: normal inspection, full ROM, normal capillary refill. Absent: tenderness, pedal edema, joint swelling, calf tenderness Back exam: Present: normal inspection Neurological exam: Present: alert, oriented X3, CN II-XII intact Skin exam: Present: warm, dry, intact, normal color. Absent: rash Course Vital Signs 07/18/24 07/19/24 20:15 00:48 Temperature 98.3 F Pulse Rate 77 70 Respiratory 18 16 Rate Blood Pressure 122/81 127/82 O2 Sat by Pulse 99 100 Oximetry Medical Decision Making - Medical Decision Making Was pt. sent in by a medical professional or institution (, PA, SQUIRREL MAN, urgent care, hospital, or [facility]...) When possible be specific @ -No Did you speak to anyone other than the patient for history (EMS, parent, family, police, friend...)? What history was obtained from this source @ -No Did you review nursing and triage notes (agree or disagree)? Why? @ -I reviewed and agree with nursing and triage notes Were old charts reviewed (outside hosp., previous admission, EMS record, old EKG, old radiological studies, urgent care reports/EKG's, [facility] records)? Report findings @ -No old charts were reviewed Differential Diagnosis (chest pain, altered mental status, abdominal pain women, abdominal pain men, vaginal bleeding, weakness, fever, dyspnea, syncope, headache, dizziness, GI bleed, back pain, seizure, CVA, palpatations, mental health, musculoskeletal)? @ -Differential Abdominal Pain Women: Appendicitis, Cholecystitis, diverticulosis, ischemic bowel, pancreatitis, hepatitis, UTI, gastroenteritis, AAA, incarcerated hernia, bowel obstruction, constipation, inflammatory bowel, hepatitis, peptic ulcer disease, splenic infarction, perforated viscus, vulvitis, ovarian torsion, PID, kidney stone, placenta abruption, this is not meant to be an all-inclusive list EKG interpreted by me (3pts min.). @ -None X-rays interpreted by me (1pt min.). @ -None done CT interpreted by me (1pt min.). @ -None done U/S interpreted by me (1pt. min.). @ -None done What testing was considered but not performed or refused? (CT, X-rays, U/S, labs)? Why? @ -CT imaging of the abdomen was considered but deferred at this time. Patient has no abdominal pain on examination. Additionally labs including CBC, CMP and pancreatic enzymes within normal limits, therefore minimal clinical concern for intra-abdominal process at this time. Patient did agree with deferring CT imaging at this time. What meds were considered but not given or refused? Why? @ -None Did you discuss the management of the patient with other professionals (professionals i.e. , PA, SQUIRREL MAN, lab, RT, psych nurse, social security assessor, carton making machine operator, teacher, chief information officer, egg caser)? Give summary @ -No Was smoking cessation discussed for >3mins.? @ -No Was critical care preformed (if so, how long)? @ -No Were there social determinants of health that impacted care today? How? (Homelessness, low income, unemployed, alcoholism, drug addiction, transportation, low edu. Level, literacy, decrease access to med. care, assisted, rehab)? @ -No Was there de-escalation of care discussed even if they declined (Discuss DNR or withdrawal of care, Hospice)? DNR status @ -No What co-morbidities impacted this encounter? (DM, HTN, Smoking, COPD, CAD, Cancer, CVA, ARF, Chemo, Hep., AIDS, mental health diagnosis, sleep apnea, morbi d obesity)? @ -None Was patient admitted / discharged? Hospital course, mention meds given and route , prescriptions, significant lab abnormalities, going to OR and other pertinent info. @ -28-year-old female with nausea and intermittent abdominal pain over the past month. Vital stable upon arrival she is resting comfortably no acute distress. Physical examination this time unremarkable with no acute findings. Patient is provided with fluids and Zofran pending results of urine and labs. CBC, CMP, and pancreatic enzymes within normal limits. Urinalysis no signs of infection, hCG negative. Labs reviewed with the patient, she has had no episodes of emesis while in the emergency department. Patient feels comfortable for discharge. Recommend that she follows up with her primary care provider next week for further evaluation. All questions answered at bedside and strict return prior discussed with the patient she is verbalized understanding. Discussed with Dr. Low. Undiagnosed new problem with uncertain prognosis? @ -No Drug Therapy requiring intensive monitoring for toxicity (Heparin, Nitro, Insulin, Cardizem)? @ -No Were any procedures done? @ -No Diagnosis/symptom? @ -Generalized nausea Acute, or Chronic, or Acute on Chronic? @ -Acute Uncomplicated (without systemic symptoms) or Complicated (systemic symptoms)? @ -uncomplicated Side effects of treatment? @ -No Exacerbation, Progression, or Severe Exacerbation? @ -No Poses a threat to life or bodily function? How? (Chest pain, [place], [place], pneumonia, PE, COPD, DKA, ARF, appy, cholecystitis, CVA, Diverticulitis, Homicidal, Suicidal, threat to staff... and all critical care pts) @ -No - Lab Data Result diagrams: 07/18/24 21:32 07/18/24 21:32 Lab Results 07/18/24 07/18/24 07/18/24 Range/Units 21:32 21:32 23:11 WBC 5.4 (3.8-10.6) k/uL RBC 4.23 (3.80-5.40) m/uL Hgb 11.9 (11.4-16.0) gm/dL Hct 36.5 (34.0-46.0) % MCV 86.3 (80.0-100.0) fL MCH 28.1 (25.0-35.0) pg MCHC 32.5 (31.0-37.0) g/dL RDW 16.2 H (11.5-15.5) % Plt Count 234 (150-450) k/uL MPV 9.4 Neutrophils % 59 % Lymphocytes % 31 % Monocytes % 7 % Eosinophils % 1 % Basophils % 0 % Neutrophils # 3.2 (1.3-7.7) k/uL Lymphocytes # 1.7 (1.0-4.8) k/uL Monocytes # 0.4 (0-1.0) k/uL Eosinophils # 0.1 (0-0.7) k/uL Basophils # 0.0 (0-0.2) k/uL Hypochromasia Slight Anisocytosis Slight Sodium 137 (137-145) mmol/L Potassium 4.0 (3.5-5.1) mmol/L Chloride 107 (98-107) mmol/L Carbon Dioxide 25 (22-30) mmol/L Anion Gap 5 mmol/L BUN 13 (7-17) mg/dL Creatinine 0.71 (0.52-1.04) mg/dL Est GFR (CKD-EPI)AfAm >90 (>60 ml/min/1.73 sqM) Est GFR (CKD-EPI)NonAf >90 (>60 ml/min/1.73 sqM) Glucose 89 (74-99) mg/dL Calcium 8.8 (8.4-10.2) mg/dL Total Bilirubin 0.8 (0.2-1.3) mg/dL AST 27 (14-36) U/L ALT 24 (4-34) U/L Alkaline Phosphatase 57 (38-126) U/L Total Protein 7.0 (6.3-8.2) g/dL Albumin 4.0 (3.5-5.0) g/dL Amylase 77 (30-110) U/L Lipase 43 (23-300) U/L Urine Color Yellow Urine Appearance Clear (Clear) Urine pH 7.5 (5.0-8.0) Ur Specific [place] 1.025 (1.001-1.035) Urine Protein Trace H (Negative) Urine Glucose (UA) Negative (Negative) Urine Ketones Negative (Negative) Urine Blood Negative (Negative) Urine Nitrite Negative (Negative) Urine Bilirubin Negative (Negative) Urine Urobilinogen 4.0 (<2.0) mg/dL Ur Leukocyte Esterase Negative (Negative) Urine HCG, Qual (Not Detectd) 07/18/24 Range/Units 23:11 WBC (3.8-10.6) k/uL RBC (3.80-5.40) m/uL Hgb (11.4-16.0) gm/dL Hct (34.0-46.0) % MCV (80.0-100.0) fL MCH (25.0-35.0) pg MCHC (31.0-37.0) g/dL RDW (11.5-15.5) % Plt Count (150-450) k/uL MPV Neutrophils % % Lymphocytes % % Monocytes % % Eosinophils % % Basophils % % Neutrophils # (1.3-7.7) k/uL Lymphocytes # (1.0-4.8) k/uL Monocytes # (0-1.0) k/uL Eosinophils # (0-0.7) k/uL Basophils # (0-0.2) k/uL Hypochromasia Anisocytosis Sodium (137-145) mmol/L Potassium (3.5-5.1) mmol/L Chloride (98-107) mmol/L Carbon Dioxide (22-30) mmol/L Anion Gap mmol/L BUN (7-17) mg/dL Creatinine (0.52-1.04) mg/dL Est GFR (CKD-EPI)AfAm (>60 ml/min/1.73 sqM) Est GFR (CKD-EPI)NonAf (>60 ml/min/1.73 sqM) Glucose (74-99) mg/dL Calcium (8.4-10.2) mg/dL Total Bilirubin (0.2-1.3) mg/dL AST (14-36) U/L ALT (4-34) U/L Alkaline Phosphatase (38-126) U/L Total Protein (6.3-8.2) g/dL Albumin (3.5-5.0) g/dL Amylase (30-110) U/L Lipase (23-300) U/L Urine Color Urine Appearance (Clear) Urine pH (5.0-8.0) Ur Specific [place] (1.001-1.035) Urine Protein (Negative) Urine Glucose (UA) (Negative) Urine Ketones (Negative) Urine Blood (Negative) Urine Nitrite (Negative) Urine Bilirubin (Negative) Urine Urobilinogen (<2.0) mg/dL Ur Leukocyte Esterase (Negative) Urine HCG, Qual Not Detected (Not Detectd) Disposition Clinical Impression: Nausea and vomiting Disposition: HOME SELF-CARE Condition: Good Instructions (If sedation given, give patient instructions): Acute Nausea and Vomiting (ED) Additional Instructions: Return to the emergency department for any new or worsening symptoms. Recommend follow-up with your primary care provider next week for further evaluation. Is patient prescribed a controlled substance at d/c from ED?: No Referrals: None,Stated [Primary Care Provider] - 1-2 days Time of Disposition: 00:13
[2024-07-18] MEDS: SODIUM CHLORIDE 0.9% 1,000 ML IV STA (21:49)
[2024-07-18] MEDS: ONDANSETRON 4 MG/2 ML VIAL IVP STA (21:49)
[2024-07-18 21:55] LABS: Anisocytosis Slight; Basophils % (A) 0 %; Eosinophils # (A) 0.1 k/uL (0-0.7); Eosinophils % (A) 1 %; HCT 36.5 % (34.0-46.0); HGB 11.9 gm/dL (11.4-16.0); Hypochromasia Slight; Lymphocytes # (A) 1.7 k/uL (1.0-4.8); Lymphocytes % (A) 31 %; MCH 28.1 pg (25.0-35.0); MCHC 32.5 g/dL (31.0-37.0); MCV 86.3 fL (80.0-100.0); Mean Platelet Volume 9.4; Monocytes # (A) 0.4 k/uL (0-1.0); Monocytes % (A) 7 %; Neutrophils # (A) 3.2 k/uL (1.3-7.7); Neutrophils % (A) 59 %; Platelet Count 234 k/uL (150-450); RBC 4.23 m/uL (3.80-5.40); RDW 16.2 % (11.5-15.5); WBC 5.4 k/uL (3.8-10.6)
[2024-07-18 22:07] LABS: ALT 24 U/L (4-34); AST 27 U/L (14-36); African American GFR (CKD) >90 (>60 ml/min/1.73 sqM); Alkaline Phosphatase 57 U/L (38-126); Amylase 77 U/L (30-110); Anion Gap 5 mmol/L; Blood Urea Nitrogen 13 mg/dL (7-17); Calcium 8.8 mg/dL (8.4-10.2); Carbon Dioxide 25 mmol/L (22-30); Chloride 107 mmol/L (98-107); Glucose 89 mg/dL (74-99); Lipase 43 U/L (23-300); Non-African American GFR(CKD) >90 (>60 ml/min/1.73 sqM); Sodium 137 mmol/L (137-145); Total Bilirubin 0.8 mg/dL (0.2-1.3)
[2024-07-18 23:49] LABS: Appearance,Urine Clear (Clear); Bilirubin,Urine Negative (Negative); Blood,Urine Negative (Negative); Color,Urine Yellow; Glucose,Urine (UA) Negative (Negative); Ketones,Urine Negative (Negative); Leukocyte Esterase,Urine Negative (Negative); Nitrite,Urine Negative (Negative); PH, Urine 7.5 (5.0-8.0); Protein,Urine Trace (Negative); Specific Gravity,Urine 1.025 (1.001-1.035)
[2024-07-19 01:05] VITALS: BP 127/82; PULSE 70; RESP 16
== END 2024-07-19 00:48 | disposition home or self-care (01) ==
LOC: EC 20:14
DX: R11.2 Nausea with vomiting, unspecified (principal)
CPT/HCPCS: 36415; 80053; 81003; 81025; 82150; 83690; 85025; 96361; 96374; 99284